=== PATIENT | female | born 1940 | race Caucasian/White ===

== ENCOUNTER 2017-02-05 11:22 | Inpatient (IN) ==
[2017-02-05] MEDS ORDERED: Ondansetron 4 MG/2 ML VIAL IVP ONE (11:27)
[2017-02-05] MEDS ORDERED: *HR* FentaNYL (PF) 100 MCG/2 ML VIAL IVP ONE (11:27)
--- NOTE | 2017-02-05 12:35 | Emergency Department Note ---
Disposition Clinical Impression: Closed intertrochanteric fracture of right femur Qualifiers: Encounter type: initial encounter Fracture alignment: displaced Qualified Code( s): S72.141A - Displaced intertrochanteric fracture of right femur, initial encounter for closed fracture Disposition: Admitted As Inpatient Condition: Fair Referrals: NONE,PCP [Non-Partnered Physician] - Forms: ED Satisfaction Letter Time of Disposition: 13:25 Fall HPI - General Chief Complaint: ED Fall Stated Complaint: right hip injury s/p fall Time Seen by Provider: 02/05/17 11:24 Source: patient, EMS Mode of arrival: EMS Limitations: no limitations Nursing Notes Reviewed: Yes Vital Signs Reviewed: Yes - History of Present Illness HPI Narrative: Patient is a 76-year-old female who presents to [facility] ED via EMS with chief complaint of right-sided hip pain. States she was working out at the fitness center when she slipped and landed on that right side. States she was unable to bear weight afterwards. They were able to get her up into a wheelchair. However she has severe pain in the right side. Denies any nausea, vomiting, fever or chills. No chest pain or shortness breath. Denies any lightheadedness or dizziness prior to falling. No abdominal pain, problems with urination or bowel movements. 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 Denies: weakness, chest pain, shortness of breath, abdominal pain, lightheaded, confusion - Related Data Home Medications Medication Instructions Recorded Confirmed Vitamins. 10/17/16 Previous Rx's Medication Instructions Recorded cephALEXin [Keflex] 500 mg PO QID #28 capsule 10/17/16 Allergies Allergy/AdvReac Type Severity Reaction Status Date / Time Sulfa (Sulfonamide Allergy Swelling Verified 02/05/17 11:25 Antibiotics) of Lip/Tongue/Throat All systems ED: reviewed and negative except as stated. 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 - Social History Smoking Status: Never smoker Alcohol use: Reports: none Drug use: Reports: none Physical Exam - General Limitations: no limitations General appearance: alert - Head Head exam: atraumatic, normocephalic, normal inspection - Eye Eye exam: Present: normal appearance, PERRL, EOMI - ENT ENT exam: normal exam, normal oropharynx, mucous membranes moist - Neck Neck exam: Present: normal inspection, full ROM, trachea midline - Chest Chest inspection: Present: normal inspection, symmetric chest wall rise - Respiratory Respiratory exam: Present: normal lung sounds bilaterally - Cardiovascular Cardiovascular exam: Present: regular rate, normal rhythm, normal heart sounds - Abdominal Exam Abdominal exam: Present: soft, Non-Tender. Absent: tenderness, distention, guarding, rebound, rigidity - Extremities Exam Extremities exam: Present: normal inspection. Absent: pedal edema - Expanded Lower Extremity Exam Hip/Pelvis exam: Present: tenderness. Absent: full ROM, swelling, abrasion - Back Exam Back exam: Present: normal inspection, full ROM. Absent: tenderness - Neurological Exam Neurological exam: Present: alert - Psychiatric Psychiatric exam: Present: normal affect, normal mood - Skin Skin exam: Present: warm, dry, intact, normal color Course Course Narrative: Patient seen and examined. Right-sided hip pain status post fall. Concern for possible fracture. Right hip x-ray and right knee x-rays ordered. We will give Tylenol for pain and Zofran for any nausea. - Reevaluation(s) Reevaluation #1: X-ray shows right intertrochanteric femur fracture. We will page orthopedics. Time: 12:37 Reevaluation #2: I spoke with hospitalist who has accepted patient for admission. I spoke with orthopedic surgeon Dr. Burt who will see the patient in consult. Time: 13:25 Vital Signs Temperature 97.8 F 02/05/17 11:25 Pulse Rate 69 02/05/17 11:25 Respiratory Rate 20 02/05/17 11:25 Blood Pressure 133/94 02/05/17 11:25 O2 Sat by Pulse Oximetry 100 02/05/17 11:25 Temperature 97.8 F 02/05/17 11:31 Pulse Rate 68 02/05/17 11:31 Respiratory Rate 20 02/05/17 11:31 Blood Pressure 160/97 02/05/17 11:31 O2 Sat by Pulse Oximetry 100 02/05/17 11:31 Oxygen Delivery Oxygen Delivery Room Air Fall - Medical Records Medical records reviewed: Yes I reviewed the patient's medical records. - Lab Data Lab results reviewed: Yes I reviewed the patient's lab results. - Radiology Data Radiology results reviewed: Yes I reviewed the patient's radiology results. Hip X-Ray 02/05/17 11:27 IMPRESSION: Intertrochanteric fracture of the right femur D/ / Jomar Osei MD / Jomar Osei MD Interpreting Provider: Jomar Osei MD Knee X-Ray 02/05/17 11:27 IMPRESSION: 1. No acute osseous abnormality. 2. Mild tricompartmental osteoarthritis. D/ / 02/05/2017 12:27:48 Julio Cesar Gibbs MD / [email or web address] Interpreting Provider: Julio Cesar Gibbs MD
[2017-02-05] MEDS ORDERED: Ondansetron 4 MG/2 ML VIAL IVP PRN (15:25)
[2017-02-05] MEDS ORDERED: *HR* Morphine 2 MG/ML SYRINGE IVP PRN (15:25)
[2017-02-05] MEDS ORDERED: Acetaminophen 325 MG TABLET PO PRN (15:25)
[2017-02-05] MEDS ORDERED: Naloxone 0.4 MG/ML INJ IVP PRN (15:25)
--- NOTE | 2017-02-05 15:26 | Orthopedic Consult Note ---
Date of Encounter: 02/05/17 Time of Encounter: 14:45 Assessment and Plan (1) Closed intertrochanteric fracture of right femur Current Visit: Yes Status: Acute Plan for right hip IM nailing tomorrow by Dr. Burt. I discussed the procedure as well as r/b/a with patient and family who expressed understanding. All questions answered and consent signed. Continue to ice the right hip. Non weight bearing until surgery. NPO after midnight tonight. Pain control per hospitalist. Qualifiers: Encounter type: initial encounter Fracture alignment: displaced Qualified Code(s): S72.141A - Displaced intertrochanteric fracture of right femur, initial encounter for closed fracture History of Present Illness Chief complaint: right hip pain HPI: Ms. Winter is a 76 year old female who presented to the ER today with right hip pain after a fall around 10:30am this morning. States she was at the gym playing beach volleyball with a beach ball when her foot slipped on the floor and she fell landing on the right side. She had instant pain in right hip that radiated down to foot. Pain was shooting, constant and worse with motion or weight bearing. No pain currently with medication but knee is sore. Denies any numbness or tingling. Denies hitting her head or LOC. Denies chest pain, SOB, fevers. Of note: Patient states no medical problems otherwise. I reviewed PCP (Dr. Mitchell) most recent visit note from 11/2016 which documents a heart cath in 2013 showed mild CAD. She had stress test in 07/2016 which showed some abnormalities so she was started on Imdur but PCP stopped this at last visit in 11/2016 and she has not had any cardiac issues since that time. Past Med Surg Social Fam HX - Past Medical History Medical history: no medical history Psychiatric history: no psych history - Social History Smoking Status: Never smoker Smokeless Tobacco Status: No Alcohol use: none Drug use: none Medications and Allergies Multivitamin [Multi-Day Vitamins] 1 tab PO DAILY 10/17/16 [History] Albuterol Sulfate [Proair Hfa] 2 puff IH Q4-6H PRN 02/05/17 [History] Alendronate Sodium [Fosamax] 70 mg PO QWEEK 02/05/17 [History] Isosorbide MONOnitrate (24 HR) [Imdur] 30 mg PO DAILY 02/05/17 [History] [place]-3/Dha/Epa/Fish Oil [Fish Oil 500 mg Softgel] 500 mg PO DAILY 02/05/17 [ History] Allergies Sulfa (Sulfonamide Antibiotics) Allergy (Verified 02/05/17 11:25) Swelling of Lip/Tongue/Throat All Systems Reviewed: A 10-system review of systems was performed and is negative for pertinent findings except as documented above in the HPI. - Constitutional Constitutional: as per HPI - Cardiovascular Cardiovascular: as per HPI - Respiratory Respiratory: as per HPI - Musculoskeletal Musculoskeletal: as per HPI Physical Exam - Constitutional Vitals: Temp Pulse Resp BP Pulse Ox 97.8 F 74 20 146/68 100 02/05/17 11:31 02/05/17 14:00 02/05/17 14:48 02/05/17 14:48 02/05/17 14:00 - Hip right Tenderness with palpation: anterior, posterior, lateral ROM: extension: abnormal (RLE is externally rotated. no open wounds or lesions to right hip. no calf tenderness to palpation. good dorsiflexion of foot. NV intact.) Results - Labs Labs: All other labs normal. - Diagnostic results Hip x-ray: report reviewed, image reviewed Knee x-ray: report reviewed, image reviewed Consult Discharge Plan - Plan Referrals: Heidi Cox MD [Primary Care Provider] - - Attending Attestation Case and plan of care discussed with supervising physician who was available for all aspects of care.
--- NOTE | 2017-02-05 15:36 | Internal Med History&Physical ---
<Lala Shaffer M - Last Filed: 02/05/17 18:13> Date of Encounter: 02/05/17 Time of Encounter: 15:37 Assessment and Plan (1) Closed intertrochanteric fracture of right femur Current visit: Yes Status: Acute Patient suffered mechanical fall today. Xray shows intertrochanteric fracture of right femur. Orthopedic surgery consulted, Dr. Burt plans surgery tomorrow afternoon. NPO after midnight. Will get pre-op ekg. Qualifiers: Encounter type: initial encounter Fracture alignment: displaced Qualified Code(s): S72.141A - Displaced intertrochanteric fracture of right femur, initial encounter for closed fracture (2) Pain of lower extremity due to injury Current visit: Yes Status: Acute Pain secondary to hip fracture. Jackson and morphine PRN for pain narcan prn for respiratory depression. Qualifiers: Laterality: right Qualified Code(s): M79.604 - Pain in right leg (3) CAD (coronary artery disease) Current visit: Yes Status: Acute Patient had LHC in 2013 which showed mild CAD with 20% stenosis in LAD, Circ and RCAs, no intervention necessary at that time. She follows with Dr. Blanchard in cardiology as an outpatient. Stress test in July showed changes to ekg with stress, but perfusion imaging was negative for ischemia or infarct. Her last visit with Dr. Blanchard was in November, and at that time her symptoms were determined to be from stress and improving after quitting a stressful job, Imdur was discontinued at that time. We will get a pre-op ekg. Qualifiers: Coronary Disease-Associated Artery/Lesion type: [place] artery [place] vs. transplanted heart: [place] heart Associated angina: without angina Qualified Code(s): I25.10 - Atherosclerotic heart disease of [place] coronary artery without angina pectoris (4) DVT prophylaxis Current visit: Yes Status: Acute sequential compression devices start pharmacologic prophylaxis after surgery tomorrow. Internal Medicine - H&P: HPI Chief complaint: fall Admitted From: Emergency Dept Plans for Post Hospital Care: Home History of present illness: Ms. Winter is a 76 year old female with no significant medical history presented to the emergency department today after suffering a fall. Patient [place] she [place] and fell on her right side. She had immediate severe sharp pain radiating down her leg to her foot. She was unable to bear weight, pain was worse with any manipulation or movement. Patient denies any lightheadedness, dizziness, chest pain, palpitations, shortness of breath. Evaluation in the emergency department included an x-ray of the hip which showed an intertrochanteric fracture of the right femur. The x-ray was negative for any acute osseous abnormality. Orthopedic surgery was consulted and planned to take patient to the operating room tomorrow afternoon for repair. Reviewed patient's outpatient notes, she was following with Dr. Blanchard for chest pain and abnormal stress. LHC in 2013 showed mild CAD. Last visit with Dr. Blanchard in November he discontinued imdur as patient's symptoms were improved and felt to be secondary to stress. Will get EKG. On exam, Patient alert and oriented, in no acute distress. Lungs are clear bilaterally to auscultation, heart has regular rate and rhythm. Right hip with swelling and tenderness to palpation. Peripheral pulses intact. Past Med Surg Social Fam HX - Past Medical History Medical history: no medical history Psychiatric history: no psych history - Past Surgical History Surgical History: other (tubal ligation) - Social History Smoking Status: Never smoker Smokeless Tobacco Status: No Alcohol use: none Drug use: none - Family History Mother Living Status: Age at : 89 Father Living Status: Age at : 92 Hx Family Cardiac Disorders: Yes Internal Medicine - H&P: Meds Multivitamin [Multi-Day Vitamins] 1 tab PO DAILY 10/17/16 [History] Albuterol Sulfate [Proair Hfa] 2 puff IH Q4-6H PRN 02/05/17 [History] Alendronate Sodium [Fosamax] 70 mg PO QWEEK 02/05/17 [History] Isosorbide MONOnitrate (24 HR) [Imdur] 30 mg PO DAILY 02/05/17 [History] [place]-3/Dha/Epa/Fish Oil [Fish Oil 500 mg Softgel] 500 mg PO DAILY 02/05/17 [ History] Allergies Sulfa (Sulfonamide Antibiotics) Allergy (Verified 02/05/17 11:25) Swelling of Lip/Tongue/Throat All Systems PM: A 10-system review of systems was performed and is negative for pertinent findings except as documented above in the HPI. - Constitutional Constitutional: no chills, no fever(s), no night sweats - EENT Eyes: no change in vision, no discharge, no pain, no photophobia Ears: no ear discharge, no ear pain, no tinnitus Nose, mouth and throat: no dysphagia, no nasal discharge, no neck pain, no sore throat - Cardiovascular Cardiovascular ROS IM: no chest pain, no diaphoresis, no dyspnea, no lightheadedness, no palpitations, no syncope - Respiratory Respiratory: no cough, no dyspnea, no wheezing, no excessive phlegm production - Gastrointestinal Gastrointestinal: no abdominal pain, no diarrhea, no hematemesis, no hematochezia, no melena, no nausea, no vomiting - Genitourinary Genitourinary: no change in urinary stream, no dysuria, no flank pain, no hematuria - Musculoskeletal Musculoskeletal ROS IM: no numbness, no tingling Additional comments: right hip and leg pain - Integumentary Integumentary IM: no rash, no unusual bruising - Neurological Neurological ROS: no confusion, no convulsions, no focal weakness, no numbness, no tingling, no tremor(s) - Hematologic/Lymphatic Hematologic/Lymphatic: no easy bruising - Constitutional Vitals: Temp Pulse Resp BP Pulse Ox 97.8 F 74 20 146/68 100 02/05/17 11:31 02/05/17 14:00 02/05/17 14:48 02/05/17 14:48 02/05/17 14:00 General appearance: Present: A&O X 3, pleasant, no acute distress - Head Head exam: Present: atraumatic, normocephalic - Eye Eye exam: Present: PERRL, conjuntiva pink, sclera anicteric Pupils: Present: PERRL - Neck Neck exam general surgery: Present: supple, trachea midline. Absent: lymphadenopathy - Respiratory Respiratory exam: Present: CTAB. Absent: accessory muscle use, rales, rhonchi, wheezes - Cardiovascular Cardiovascular exam: Present: RRR, +S1, +S2. Absent: diastolic murmur, gallop, rubs, systolic murmur - GI/Abdominal GI/Abdominal exam: Present: normal bowel sounds, soft, no peritoneal signs. Absent: distended, tenderness - Extremities Exam Extremities exam: Present: warm, radial pulses palpable and symetrical. Absent : calf tenderness, cyanotic, pedal edema - Expanded Lower Extremities Exam Hip exam: Present: deformity, tenderness - Neurological Exam Neurological exam: Present: CN II-XII intact, oriented X3, no focal deficits. Absent: pronater drift, facial droop, speech deficit - Skin Skin exam: Present: dry, intact Internal Med - H&P Results - Diagnostic Studies Other Images Additional comments: Hip X-Ray 02/05/17 11:27 IMPRESSION: Intertrochanteric fracture of the right femur D/ / Jomar Osei MD / Jomar Osei MD Interpreting Provider: Jomar Osei MD Knee X-Ray 02/05/17 11:27 IMPRESSION: 1. No acute osseous abnormality. 2. Mild tricompartmental osteoarthritis. D/ / 02/05/2017 12:27:48 Julio Cesar Gibbs MD / [email or web address] Interpreting Provider: Julio Cesar Gibbs MD <[email or web address] - Last Filed: 02/05/17 18:34> Date of Encounter: 02/05/17 Internal Medicine - H&P: HPI History of present illness: Ms. Winter is a 76 year old female All Systems PM: A 10-system review of systems was performed and is negative for pertinent findings except as documented above in the HPI. - Constitutional Vitals: Temp Pulse Resp BP Pulse Ox 98.0 F 68 18 119/45 99 02/05/17 15:43 02/05/17 15:43 02/05/17 15:43 02/05/17 15:43 02/05/17 15:43 - Attending Attestation I have personally performed a face to face evaluation on this patient and I discussed the assessment and plan with the nurse practitioner. I have reviewed and agree with the documented care plan. History and Exam by me shows: Ms. Winter is a 76 year old female with no significant medical history presented to the emergency department today after suffering a fall. Patient reports [place] she [place] and fell on her right side. She had immediate severe sharp pain radiating down her leg to her foot. She was unable to bear weight, pain was worse with any manipulation or movement. Patient denies any lightheadedness, dizziness, chest pain, palpitations, shortness of breath. Evaluation in the emergency department included an x-ray of the hip which showed an intertrochanteric fracture of the right femur. Gen: A, A, O x 3 In mild distress with Rt hip pain Hip: mild swelling and tenderness over Rt hip.. limited ROM at Rt hip a/p 1. Acute Rt inter trochanteric fx 2. h/o CAD Pt was very active prior to this Seems to be she moderate risk only for major surgeries like Hi repair will f/u on her EKG.. does not need any further work up for pre op clearance cont Lovenox for DVT prophylaxis
--- NOTE | 2017-02-05 19:52 | Anesthesia Evaluation PreOp ---
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 Other Medical History: Denies Any Significant HX Anesthesia History: No Prior Anesthetic Complications, Past Anesthesia Alcohol Use: rarely Drug use: none Medications and Allergies Multivitamin [Multi-Day Vitamins] 1 tab PO DAILY 10/17/16 [History] Albuterol Sulfate [Proair Hfa] 2 puff IH Q4-6H PRN 02/05/17 [History] Alendronate Sodium [Fosamax] 70 mg PO QWEEK 02/05/17 [History] Isosorbide MONOnitrate (24 HR) [Imdur] 30 mg PO DAILY 02/05/17 [History] [place]-3/Dha/Epa/Fish Oil [Fish Oil 500 mg Softgel] 500 mg PO DAILY 02/05/17 [ History] Allergies Sulfa (Sulfonamide Antibiotics) Allergy (Verified 02/05/17 11:25) Swelling of Lip/Tongue/Throat - Meds/Allergy Pre-op Review Medications Reviewed: Yes Allergies Reviewed: Yes Beta Blockers on Current Med List: No Anesthesia Results - Labs 02/06/17 05:07 Laboratory Tests 07/17/16 07/17/16 07/17/16 16:41 16:41 16:41 WBC 6.7 Hgb 12.8 Hct 39.6 Plt Count 323 PT 11.1 INR 1.0 APTT 32.3 Sodium 140 Potassium 3.5 BUN 11 Creatinine 0.82 - Imaging EKG: report reviewed (07/17/2016 SINUS RHYTHM WITH FIRST DEGREE AV BLOCK) Additional studies: 07/31/2016 Echo Impressions: LVEF 65%. Normal LV chamber size, wall thickness and function. Mild left ventricular diastolic dysfunction. Normal right ventricular structure and function. No evidence of pulmonary hypertension. No significant valvular dysfunction. 07/31/2016 Stress Impression: Exercise ECG is positive for ischemia in the inferior limb leads and lateral precordial leads. Gated EF = 79%. Perfusion imaging was negative for ischemia or infarct. 09/17/2013 [facility] Impressions: Minimal atherosclerotic coronary artery disease. The left ventricle is normal and has normal contractility EF 65% Recommendations: Optimal medical therapy of patient's disease. Aggressive risk factor modification. Aspirin 81mg daily. 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
[2017-02-05] MEDS: *HR* HYDROcodone/Acet 5/325 mg TABLET PO PRN (20:25)
[2017-02-06] MEDS: 0.9 % Sodium Chloride 1,000 ML IVC SCH ×2 (00:11→10:25)
[2017-02-06 06:00] LABS: Basophils % 0.2 %; Eosinophils % 0.2 %; Immature Granulocytes % 0.3 % (0-4); Lymphocytes % 13.1 %; Mean Corpuscular Hemoglobin 30.6 pg (28.0-33.3); Monocytes % 12.1 %; Red Cell Distribution Width 12.7 % (11.5-14.5); Segmented Neutrophils % 74.1 %
[2017-02-06 08:00] LABS: BUN/Creatinine Ratio 15 (6-26); Blood Urea Nitrogen 11 mg/dL (7-20); Carbon Dioxide 21 mEq/L (19-29); Glucose 102 mg/dL (70-99); Osmolality,Calculated 288 (280-300); Sodium 139 mEq/L (136-145); eGFR For African Americans > 60 (> 60); eGFR For Non-African Americans > 60 (> 60)
[2017-02-06 08:01] LABS: Calcium 9.1 mg/dL (8.6-10.8); Chloride 111 mEq/L (98-109)
[2017-02-06 09:41] LABS: % Iron Saturation 12 % (15-50); Iron 37 mcg/dL (50-170); Transferrin 224 mg/dL (180-382)
[2017-02-06] MEDS: *HR* HYDROcodone/Acet 5/325 mg TABLET PO PRN ×2 (10:00→15:12)
[2017-02-06 10:01] LABS: Ferritin 180 ng/ml (5-204)
[2017-02-06 10:13] LABS: Hematocrit 34.5 % (35.3-44.9); Hemoglobin 11.4 g/dL (11.5-15.4)
[2017-02-06 10:21] LABS: Lymphocytes # 1.2 K/mcL (0.6-4.6); Monocytes # 1.1 K/mcL (0.0-1.3); Neutrophils # 6.6 K/mcL (1.6-8.9); Red Blood Count 3.75 M/mcL (3.82-4.97)
[2017-02-06 10:22] LABS: Hematocrit 34.7 % (35.3-44.9); Hemoglobin 11.5 g/dL (11.5-15.4); Mean Corpuscular Volume 92.5 fL (83.0-100.0)
[2017-02-06 10:23] LABS: Mean Corpuscular HGB Conc 33.1 g/dL (31.6-35.5); Platelet Count 230 K/mcL (140-400)
[2017-02-06 10:24] LABS: Mean Platelet Volume 10.7 fL (9.4-12.4)
--- NOTE | 2017-02-06 14:00 | Internal Med Progress Note ---
<Gina Nguyen - Last Filed: 02/06/17 18:45> Date of Encounter: 02/06/17 Time of Encounter: 13:57 - Assessment and plan (1) Closed intertrochanteric fracture of right femur Current Visit: Yes Status: Acute Assessment and plan: Patient suffered mechanical fall 02/05 during [employer] game. XR shows intertrochanteric fracture of right femur Ortho (Dr. Burt) consulted, plan for surgery this afternoon with 3 day post-op stay. Plan: -NPO until surgery today Qualifiers: Encounter type: initial encounter Fracture alignment: displaced Qualified Code(s): S72.141A - Displaced intertrochanteric fracture of right femur, initial encounter for closed fracture (2) Pain of lower extremity due to injury Current Visit: Yes Status: Acute Assessment and plan: Pain secondary to hip fracture Plan: -Pain control with morphine prn and norco Qualifiers: Laterality: right Qualified Code(s): M79.604 - Pain in right leg (3) CAD (coronary artery disease) Current Visit: Yes Status: Acute Assessment and plan: Patient had LHC in 2013 which showed mild CAD with 20% stenosis in LAD, Circ and RCAs, no intervention necessary at that time. She follows with Dr. Blanchard in cardiology as an outpatient. Stress test in July showed changes to ekg with stress, but perfusion imaging was negative for ischemia or infarct. Her last visit with Dr. Blanchard was in November, and at that time her symptoms were determined to be from stress and improving after quitting a stressful job, Imdur was discontinued at that time. EK07/17/2016: SINUS RHYTHM WITH FIRST DEGREE AV BLOCK 07/31/2016 Echo: LVEF 65%. Normal LV chamber size, wall thickness and function. Mild left ventricular diastolic dysfunction. Normal right ventricular structure and function. No evidence of pulmonary hypertension. No significant valvular dysfunction. 07/31/2016 Stress: Exercise ECG is positive for ischemia in the inferior limb leads and lateral precordial leads. Gated EF = 79%. Perfusion imaging was negative for ischemia or infarct. Qualifiers: Coronary Disease-Associated Artery/Lesion type: [place] artery [place] vs. transplanted heart: [place] heart Associated angina: without angina Qualified Code(s): I25.10 - Atherosclerotic heart disease of [place] coronary artery without angina pectoris (4) DVT prophylaxis Current Visit: Yes Status: Acute Assessment and plan: sequential compression devices Will start pharmacologic prophylaxis after surgery - Subjective Interval history: Patient seen and examined. She remains NPO and states she is scheduled for surgery around 1400 for closed intertrochanteric fracture of the right femur following a mechanical fall with Dr. Burt. She denies any complaints of f/c, sob, cp, n/v. she does experience pain in the right leg when she turns from side to side. - Constitutional Vitals: Temp Pulse Resp BP Pulse Ox 97.6 F 66 18 148/69 95 02/06/17 12:02 02/06/17 12:02 02/06/17 12:02 02/06/17 12:02 02/06/17 12:02 General appearance: Present: cooperative, A&O X 3, pleasant, no acute distress, answers questions appropriately - Head Head exam: Present: atraumatic, normocephalic - Eye Eye exam: Present: PERRL, conjuntiva pink, sclera anicteric Pupils: Present: PERRL - Respiratory Respiratory exam: Present: CTAB. Absent: accessory muscle use, rales, rhonchi, wheezes - Cardiovascular Cardiovascular exam: Present: RRR, +S1, +S2. Absent: diastolic murmur, gallop, rubs, systolic murmur - GI/Abdominal GI/Abdominal exam: Present: normal bowel sounds, soft, no peritoneal signs. Absent: distended, tenderness - Extremities Exam Extremities exam: Present: warm, radial pulses palpable and symetrical. Absent : calf tenderness, cyanotic, pedal edema Additional comments: tenderness with palpation of right leg. Neurovascularly intact on exam, no erythema noted - Neurological Exam Neurological exam: Present: alert, CN II-XII intact, oriented X3, no focal deficits. Absent: pronater drift, facial droop, speech deficit - Psychiatric Psychiatric exam: Present: normal affect, normal mood - Skin Skin exam: Present: dry, intact Internal Medicine: Result - Labs CBC & Chem 7: 02/06/17 10:04 02/06/17 06:46 Labs: Short CBC 02/06/17 02/06/17 Range/Units 06:46 10:04 WBC 8.9 (4.3-11.1) K/mcL Hgb 11.5 11.4 L (11.5-15.4) g/dL Hct 34.7 L 34.5 L (35.3-44.9) % Plt Count 230 (140-400) K/mcL Neutrophils # 6.6 (1.6-8.9) K/mcL [facility] 02/06/17 06:46 Sodium 139 Potassium 4.0 Chloride 111 H Carbon Dioxide 21 BUN 11 Creatinine 0.74 Glucose 102 H Calcium 9.1 Consult Discharge Plan - Plan Referrals: Heidi Cox MD [Primary Care Provider] - <Mann Pitts - Last Filed: 02/06/17 23:25> Date of Encounter: 02/06/17 - Constitutional Vitals: Temp Pulse Resp BP Pulse Ox 98.1 F 77 14 161/78 100 02/06/17 23:12 02/06/17 23:12 02/06/17 23:12 02/06/17 23:12 02/06/17 23:12 Internal Medicine: Result - Labs CBC & Chem 7: 02/06/17 10:04 02/06/17 06:46 Labs: Short CBC 02/06/17 02/06/17 Range/Units 06:46 10:04 WBC 8.9 (4.3-11.1) K/mcL Hgb 11.5 11.4 L (11.5-15.4) g/dL Hct 34.7 L 34.5 L (35.3-44.9) % Plt Count 230 (140-400) K/mcL Neutrophils # 6.6 (1.6-8.9) K/mcL [facility] 02/06/17 06:46 Sodium 139 Potassium 4.0 Chloride 111 H Carbon Dioxide 21 BUN 11 Creatinine 0.74 Glucose 102 H Calcium 9.1 - Impressions Impressions Fluoroscopy 02/06/17 20:55 IMPRESSION: Successful internal reduction of intertrochanteric fracture with hardware. D/ / Eloy Rodgers MD / Eloy Rodgers MD Interpreting Provider: Eloy Rodgers MD - Attending Attestation She is bright and cheerful.. repeat HGB is good. She should be good for surgery later today, then will work on rehab placement
--- NOTE | 2017-02-06 15:32 | Electrocardiograph Report ---
[address] [place] [address] Test Date: 2017-02-06 Pat Name: Rosalina Winter Department: [id number] Room: [facility] Gender: F Workgroup Leader: [id number] : 1940 Requested By: Lala Shaffer Order Number: [id number] Reading MD: Heidi Arredondo Measurements Intervals [place] Rate: 69 P: 63 SC: 222 QRS: 33 QRSD: 93 T: 57 QT: 393 QTc: 412 Interpretive Statements SINUS RHYTHM WITH FIRST DEGREE AV BLOCK Electronically Signed On 02-06-2017 15:30:38 EDT by Heidi Arredondo
[2017-02-06] MEDS ORDERED: *HR* Propofol 200 MG/20 ML VIAL IVP ONE (16:42)
[2017-02-06] MEDS ORDERED: Ondansetron 4 MG/2 ML VIAL ONE (16:42)
[2017-02-06] MEDS ORDERED: Dexamethasone 4 MG/ML VIAL ONE (16:42)
[2017-02-06] MEDS ORDERED: *HR* FentaNYL (PF) 100 MCG/2 ML VIAL ONE (16:42)
[2017-02-06] MEDS ORDERED: Lidocaine -MPF 2% 2 ML VIAL ONE (16:42)
[2017-02-06] MEDS ORDERED: *HR* Phenylephrine 10 MG/ML VIAL ONE (16:49)
[2017-02-06] MEDS ORDERED: *HR* HYDROmorphone (PF) 1 MG/ML SYRINGE IVP PRN (19:55)
[2017-02-06] MEDS ORDERED: *HR* Promethazine 25 MG/ML VIAL IVP PRN (19:55)
[2017-02-06] MEDS ORDERED: *HR* Morphine 10 MG/ML VIAL ONE (21:47)
--- NOTE | 2017-02-06 22:02 | Operative Note ---
Date of procedure: 02/06/17 Pre-op diagnosis: Right hip intertrochanteric fracture Post-op diagnosis: same Procedure: Right hip intramedullary nailing Implants: Synthes Trochanteric Femoral Nail Anesthesia: SUSY Surgeon: Jaden Burt Estimated blood loss (cc): 50 Specimen: 0 Condition: stable Disposition: PACU Procedure in Detail: The patient received IV antibiotics in the holding area. She was brought to the operating room, a sign in was performed. The patient underwent general anesthesia on the hospital bed. She was then transferred to the fracture table in supine position. The patient was positioned with the support groin post, the affected right lower extremity in the traction arrieta and the contralateral lower extremity in a well-padded limb arrieta with a hip flexed and abducted out of the way. Fluoroscopy was then brought in, the fractures visualized, and the fracture reduced. We checked on AP and true lateral view of the hip. Once satisfactory the right hip, from the pelvis down to the knee, was prepped and draped in usual sterile fashion. A timeout was performed. The level of the greater trochanter was palpated, a 4-5 cm oblique incision was made just proximally, , followed by Bovie dissection. The hip abductor was sharply split in line with its fibers with a curved Thao scissors. The tip of the greater trochanter was palpable. A curved awl was then positioned on the tip. Its position was checked on fluoroscopy, slightly advanced, and we checked the lateral view. Once appropriately positioned, the awl was then used to try open the proximal femur. The patient's bone was too dense. A guidewire was driven through the tip of the greater trochanter followed by the reamer down to level of the lesser trochanter. A short Trochanteric Femoral Nail Advanced with 130 degree neck angle, 11 mm diameter, was assembled, and appropriately inserted into the proximal femur. The appropriate level was checked under fluoroscopy. The triple trochars of 130 degree neck angle was then positioned against the skin, checking fluoroscopy for positioning. Once satisfactory a 2.5 cm incision was made, the fascia was bluntly split along with the muscle fibers of the vastus lateralis. The triple trocar was advanced up against the lateral cortex. The guidepin was then driven up into the femoral head, checking AP and lateral views. The wire was adjusted as needed. A 90 mm long helical blade was chosen. Overdrilled the guidewire, and the helical blade was tapped in place over the guidewire in standard technique. Once close to the edge of the femoral head, the setscrew was then screwed down. The triple trochars for the distal static locking screw were placed in the jig, a 1 cm longitudinal incision was made. The trochars were advanced to the cortex , and drilled across. The depth was measured and a 34 mm long by 5 mm bicortical screw was placed. All trochars and jig were removed. Final fluoroscopy shots were taken and saved showing good AP and lateral views of the hip and also distally at the tip of the nail. The wounds were irrigated with normal saline. Fascia over the abductors was closed with 0 Vicryl [id number] stitches, including the deep subcutaneous fat layer. Subcutaneous tissues were closed with 2-0 Vicryl, and the skin incisions were closed with sadie. Sterile dressings were applied. The patient was transferred to hospital bed where she was extubated and taken to recovery room in stable condition.
--- NOTE | 2017-02-06 22:39 | Anesthesia Evaluation Post Op ---
Date of Encounter: 02/06/17 Time of Encounter: 22:39 - Vital Signs Vital Signs: Vital Signs/O2 Sat, Most Current Temp Pulse Resp BP Pulse Ox 98 F 74 12 138/61 100 02/06/17 22:03 02/06/17 22:23 02/06/17 22:23 02/06/17 22:23 02/06/17 22:23 - Lungs Lungs: Clear Ascult./Percussion - Airway Airway: Non-obstructed - Cardiovascular Regular Rate - Mental Status Mental Status: Alert & Oriented, Answers Appropriately - Pain Pain Scale: 2 Pain Scale used: Numeric (1 - 10) - Nausea Vomiting Nausea Vomiting: Not Present - Hydration Hydration: NPO, Carvajal catheter - Discharge PostOp Status: Transfer Patient to floor
[2017-02-06] MEDS ORDERED: *HR* Morphine 2 MG/ML SYRINGE IVP PRN (23:03)
[2017-02-06] MEDS ORDERED: Sennosides 8.6 MG TABLET PO PRN (23:03)
[2017-02-06] MEDS ORDERED: *HR* HYDROcodone/Acet 5/325 mg TABLET PO PRN (23:03)
[2017-02-06] MEDS ORDERED: D5% in 0.45% NACL 1,000 ML IVC SCH (23:03)
[2017-02-06] MEDS ORDERED: Ondansetron 4 MG/2 ML VIAL IVP PRN (23:03)
[2017-02-06] MEDS ORDERED: Naloxone 0.4 MG/ML INJ IVP PRN ×2 (23:03)
[2017-02-07] MEDS: ceFAZolin 2,000 MG in D5% in Water 100 ML IVPB SCH ×2 (00:11→07:25)
[2017-02-07 05:08] LABS: Hematocrit 33.2 % (35.3-44.9); Hemoglobin 10.9 g/dL (11.5-15.4); Immature Granulocytes % 0.4 % (0-4); Lymphocytes # 0.7 K/mcL (0.6-4.6); Mean Corpuscular HGB Conc 32.8 g/dL (31.6-35.5); Mean Corpuscular Hemoglobin 30.3 pg (28.0-33.3); Mean Corpuscular Volume 92.2 fL (83.0-100.0); Mean Platelet Volume 10.6 fL (9.4-12.4); Monocytes # 0.6 K/mcL (0.0-1.3); Monocytes % 7.5 %; Neutrophils # 6.8 K/mcL (1.6-8.9); Platelet Count 197 K/mcL (140-400); Red Cell Distribution Width 12.5 % (11.5-14.5); Segmented Neutrophils % 83.1 %
[2017-02-07 05:22] LABS: BUN/Creatinine Ratio 12 (6-26); Blood Urea Nitrogen 9 mg/dL (7-20); Calcium 8.5 mg/dL (8.6-10.8); Carbon Dioxide 23 mEq/L (19-29); Chloride 108 mEq/L (98-109); Glucose 156 mg/dL (70-99); Osmolality,Calculated 290 (280-300); Potassium 3.8 mEq/L (3.5-4.5); Sodium 139 mEq/L (136-145); eGFR For African Americans > 60 (> 60); eGFR For Non-African Americans > 60 (> 60)
[2017-02-07] MEDS: Cholecalciferol (D-3) 1,000 UNIT TABLET PO SCH (07:25)
--- NOTE | 2017-02-07 08:12 | Internal Med Progress Note ---
<Gina Nguyen - Last Filed: 02/07/17 17:19> Date of Encounter: 02/07/17 Time of Encounter: 08:12 - Assessment and plan (1) Closed intertrochanteric fracture of right femur Current Visit: Yes Status: Acute Assessment and plan: Patient suffered mechanical fall 02/05 during [email or web address] game with intertrochanteric fracture of right femur. POD#1 Right hip intermedulary nailing with Dr. Burt Ortho (Dr. Burt) consulted, appreciate recs Doing well today, up in chair and tolerating breakfast, passing gas Plan: -PT/OT -Pain control Qualifiers: Encounter type: initial encounter Fracture alignment: displaced Qualified Code(s): S72.141A - Displaced intertrochanteric fracture of right femur, initial encounter for closed fracture (2) CAD (coronary artery disease) Current Visit: Yes Status: Acute Assessment and plan: Patient had LHC in 2013 which showed mild CAD with 20% stenosis in LAD, Circ and RCAs, no intervention necessary at that time. She follows with Dr. Blanchard in cardiology as an outpatient. Stress test in July showed changes to ekg with stress, but perfusion imaging was negative for ischemia or infarct. Her last visit with Dr. Mitchell was in November, and at that time her symptoms were determined to be from stress and improving after quitting a stressful job, Imdur was discontinued at that time. EK07/17/2016: SINUS RHYTHM WITH FIRST DEGREE AV BLOCK 07/31/2016 Echo: LVEF 65%. Normal LV chamber size, wall thickness and function. Mild left ventricular diastolic dysfunction. Normal right ventricular structure and function. No evidence of pulmonary hypertension. No significant valvular dysfunction. 07/31/2016 Stress: Exercise ECG is positive for ischemia in the inferior limb leads and lateral precordial leads. Gated EF = 79%. Perfusion imaging was negative for ischemia or infarct. Qualifiers: Coronary Disease-Associated Artery/Lesion type: [place] artery [place] vs. transplanted heart: [place] heart Associated angina: without angina Qualified Code(s): I25.10 - Atherosclerotic heart disease of [place] coronary artery without angina pectoris (3) DVT prophylaxis Current Visit: Yes Status: Acute Assessment and plan: Lovenox SQ - Subjective Interval history: Patient seen and examined. She is POD#1 Right hip intermedulary nailing with Dr. Burt. She is sitting up in the chair this morning eating breakfast. She states that her pain is much better compared to yesterday. She had some SOB with ambulation, but none at rest. Denies f/c, cp, abdominal pain, tolerating breakfast well. - Constitutional Vitals: Temp Pulse Resp BP Pulse Ox 98.6 F 73 18 143/79 95 02/07/17 06:40 02/07/17 06:40 02/07/17 06:40 02/07/17 06:40 02/07/17 06:40 General appearance: Present: cooperative, A&O X 3, pleasant, no acute distress, answers questions appropriately - Head Head exam: Present: atraumatic, normocephalic - Neck Neck exam general surgery: Present: supple, trachea midline. Absent: lymphadenopathy - Respiratory Respiratory exam: Present: CTAB. Absent: accessory muscle use, rales, rhonchi, wheezes - Cardiovascular Cardiovascular exam: Present: RRR, +S1, +S2. Absent: diastolic murmur, gallop, rubs, systolic murmur - GI/Abdominal GI/Abdominal exam: Present: normal bowel sounds, soft, no peritoneal signs. Absent: distended, tenderness - Extremities Exam Extremities exam: Present: normal capillary refill, warm, radial pulses palpable and symetrical. Absent: calf tenderness, cyanotic, pedal edema Additional comments: Dressing in place right lateral hip, limb is neurovascularly intact without evidence of erythema, eccymosis or swelling. - Neurological Exam Neurological exam: Present: CN II-XII intact, oriented X3, no focal deficits. Absent: pronater drift, facial droop, speech deficit - Psychiatric Psychiatric exam: Present: normal affect, normal mood - Skin Skin exam: Present: dry, intact, warm Internal Medicine: Result - Labs CBC & Chem 7: 02/07/17 04:14 02/07/17 04:14 Labs: Short CBC 02/06/17 02/06/17 02/07/17 Range/Units 06:46 10:04 04:14 WBC 8.9 8.1 (4.3-11.1) K/mcL Hgb 11.5 11.4 L 10.9 L (11.5-15.4) g/dL Hct 34.7 L 34.5 L 33.2 L (35.3-44.9) % Plt Count 230 197 (140-400) K/mcL Neutrophils # 6.6 6.8 (1.6-8.9) K/mcL BMP 02/07/17 04:14 Sodium 139 Potassium 3.8 Chloride 108 Carbon Dioxide 23 BUN 9 Creatinine 0.75 Glucose 156 H Calcium 8.5 L - Impressions Impressions Fluoroscopy 02/06/17 20:55 IMPRESSION: Successful internal reduction of intertrochanteric fracture with hardware. D/ / Eloy Rodgers MD / Eloy Rodgers MD Interpreting Provider: Eloy Rodgers MD - VTE Documentation of Mechanical Device: Intermittent pneumatic compression device Consult Discharge Plan - Plan Referrals: Heidi Cox MD [Primary Care Provider] - <Mann Pitts - Last Filed: 02/07/17 18:05> Date of Encounter: 02/07/17 - Constitutional Vitals: Temp Pulse Resp BP Pulse Ox 98.8 F 80 16 147/54 98 02/07/17 15:15 02/07/17 15:15 02/07/17 15:15 02/07/17 15:15 02/07/17 15:15 Internal Medicine: Result - Labs CBC & Chem 7: 02/07/17 04:14 02/07/17 04:14 Labs: Short CBC 02/07/17 Range/Units 04:14 WBC 8.1 (4.3-11.1) K/mcL Hgb 10.9 L (11.5-15.4) g/dL Hct 33.2 L (35.3-44.9) % Plt Count 197 (140-400) K/mcL Neutrophils # 6.8 (1.6-8.9) K/mcL BMP 02/07/17 04:14 Sodium 139 Potassium 3.8 Chloride 108 Carbon Dioxide 23 BUN 9 Creatinine 0.75 Glucose 156 H Calcium 8.5 L - Impressions Impressions Fluoroscopy 02/06/17 20:55 IMPRESSION: Successful internal reduction of intertrochanteric fracture with hardware. D/ / Eloy Rodgers MD / Eloy Rodgers MD Interpreting Provider: Eloy Rodgers MD - Attending Attestation I examined this patient and my medical decision-making was reviewed with the Resident Physician. I agree with the documented findings, disposition and treatment plan as described except to the extent set forth below. Hope to DC tomorrow to rehab.. BP is labile with pain. She does not take any BP meds per se.
--- NOTE | 2017-02-07 14:53 | Orthopedics Progress Note ---
Date of Encounter: 02/07/17 Time of Encounter: 12:45 - Assessment and Plan (1) Closed intertrochanteric fracture of right femur Current Visit: Yes Status: Acute POD#1 Right hip IM nailing Continue to apply ice to right hip. Dressings to be changed tomorrow. Continue in therapy, WBAT Pain control per hospitalist. Plan for DC to ECF tomorrow. Will follow up with Irene Zepeda PA-C in [place] office at [facility]. Qualifiers: Encounter type: initial encounter Fracture alignment: displaced Qualified Code(s): S72.141A - Displaced intertrochanteric fracture of right femur, initial encounter for closed fracture Subjective Principal diagnosis: POD#1 s/p right hip IM nailing Interval history: Patient doing well today with no complaints. No events overnight. Pain very tolerable. She has been ambulating well during therapy session this morning. Denies calf pain. Objective Vital signs: Vital Signs Temp Pulse Resp BP Pulse Ox 02/07/17 10:50 97.8 F 73 16 146/56 99 02/07/17 06:40 98.6 F 73 18 143/79 95 02/07/17 04:26 98.7 F 70 14 152/66 96 02/07/17 01:11 98.5 F 75 16 155/68 97 02/07/17 00:07 98.3 F 78 16 162/69 98 02/06/17 23:12 98.1 F 77 14 161/78 100 02/06/17 22:45 98.0 F 80 16 164/74 98 02/06/17 22:33 98.3 F 80 16 143/54 99 02/06/17 22:23 74 12 138/61 100 02/06/17 22:13 75 12 135/66 100 02/06/17 22:03 98 F 82 10 123/61 100 02/06/17 15:45 98.2 F 70 18 139/61 98 Intake and Output 02/06/17 02/07/17 02/07/17 23:59 07:59 15:59 Intake Total 100 / 100 0 / 0 Output Total 650 / 650 1175 / 1175 Balance -650 / -650 -1075 / -1075 0 / 0 Intake: IV Fluids 100 / 100 Ancef 2,000 MG In 100 / 100 Dextrose 5% 100 ML @ 200 mls/hr IVPB Q8HR JIM Rx#: [id number] Oral 0 / 0 Output: Estimated Blood Loss 50 / 50 Urine Amount (Catheter) 600 / 600 Catheter 1175 / 1175 Other: Meal Lunch Percent of Meal Consumed 75% # Voids 1 Weight 64.4 kg Patient Weight 02/07/17 23:59 Weight 64.4 kg Incision: clean and dry (dressings c/d/i with no surrounding erythema, no calf pain to palpation,NV intact) - Labs CBC & BMP: 02/07/17 04:14 02/07/17 04:14 Labs: Abnormal lab results RBC 3.60 M/mcL (3.82-4.97) L 02/07/17 04:14 Hgb 10.9 g/dL (11.5-15.4) L 02/07/17 04:14 Hct 33.2 % (35.3-44.9) L 02/07/17 04:14 Glucose 156 mg/dL (70-99) H 02/07/17 04:14 Calcium 8.5 mg/dL (8.6-10.8) L 02/07/17 04:14 Iron 37 mcg/dL (50-170) L 02/06/17 09:05 % Saturation 12 % (15-50) L 02/06/17 09:05 - VTE Documentation of Mechanical Device: Intermittent pneumatic compression device Consult Discharge Plan - Plan Referrals: Heidi Cox MD [Primary Care Provider] -
[2017-02-08] MEDS: *HR* Enoxaparin 30 MG/0.3 ML SYRINGE SQ SCH ×2 (01:32→08:14)
[2017-02-08 05:39] LABS: Hematocrit 29.5 % (35.3-44.9); Hemoglobin 9.8 g/dL (11.5-15.4); Mean Corpuscular HGB Conc 33.2 g/dL (31.6-35.5); Mean Corpuscular Hemoglobin 30.2 pg (28.0-33.3); Mean Platelet Volume 10.5 fL (9.4-12.4); Platelet Count 182 K/mcL (140-400); Red Blood Count 3.24 M/mcL (3.82-4.97); Red Cell Distribution Width 12.5 % (11.5-14.5)
[2017-02-08 05:57] LABS: BUN/Creatinine Ratio 17 (6-26); Blood Urea Nitrogen 12 mg/dL (7-20); Calcium 9.2 mg/dL (8.6-10.8); Carbon Dioxide 26 mEq/L (19-29); Chloride 109 mEq/L (98-109); Glucose 104 mg/dL (70-99); Osmolality,Calculated 292 (280-300); Potassium 3.4 mEq/L (3.5-4.5); Sodium 141 mEq/L (136-145); eGFR For African Americans > 60 (> 60); eGFR For Non-African Americans > 60 (> 60)
[2017-02-08] MEDS: Acetaminophen 325 MG TABLET PO PRN ×2 (06:53→13:45)
[2017-02-08 07:47] VITALS: BP 135/68
[2017-02-08] MEDS: Cholecalciferol (D-3) 1,000 UNIT TABLET PO SCH (08:13)
--- NOTE | 2017-02-08 08:20 | Physician Discharge Referral ---
ExtendedCare Referral Info Transfer To: [facility] Provider in Charge after Transfer: PCP Institutional Level of Care: Skilled - Diagnosis (1) Closed intertrochanteric fracture of right femur Priority: Primary Status: Acute (2) CAD (coronary artery disease) Priority: Secondary Status: Chronic (3) DVT prophylaxis Priority: Primary Status: Acute Prognosis: Good Aware of Diagnosis: Patient Aware of Prognosis: Patient - Transfer Medications Prescriptions: HYDROcodone/Acet 5/325 mg [[place] 5-325 mg] 1 tab PO Q4HR PRN #20 tab PRN Reason: Moderate Pain (4-6) Acetaminophen [Tylenol] 650 mg PO Q6HR PRN #21 tab PRN Reason: Mild Pain (1-3) Cholecalciferol (D-3) [Vitamin D] 1,000 unit PO DAILY #30 tab Docusate [Colace] 100 mg PO BID PRN #10 PRN Reason: Constipation Home Medications: Multivitamin [Multi-Day Vitamins] 1 tab PO DAILY 10/17/16 [History] Albuterol Sulfate [Proair Hfa] 2 puff IH Q4-6H PRN 02/05/17 [History] Alendronate Sodium [Fosamax] 70 mg PO QWEEK 02/05/17 [History] Isosorbide MONOnitrate (24 HR) [Imdur] 30 mg PO DAILY 02/05/17 [History] [place]-3/Dha/Epa/Fish Oil [Fish Oil 500 mg Softgel] 500 mg PO DAILY 02/05/17 [ History] Acetaminophen [Tylenol] 650 mg PO Q6HR PRN #21 tab 02/08/17 [Rx] Cholecalciferol (D-3) [Vitamin D] 1,000 unit PO DAILY #30 tab 02/08/17 [Rx] Docusate [Colace] 100 mg PO BID PRN #10 02/08/17 [Rx] HYDROcodone/Acet 5/325 mg [[place] 5-325 mg] 1 tab PO Q4HR PRN #20 tab 02/08/17 [ Rx] Allergies/Adverse Reactions: Allergies Sulfa (Sulfonamide Antibiotics) Allergy (Verified 02/05/17 11:25) Swelling of Lip/Tongue/Throat - Respiratory Orders Smoking Cessation: Smoking cessation has been advised. For more information, call the [place] Tobacco Quit Line at 1-806-WKLC-NOW. - Advance Directives Code Status: Full Code - Mobility Orders Ambulate - Rehabiliation Orders Rehab Potential: Good Rehab Orders: ROM Exercises, Evaluation for Physical Therapy, Evaluation for Occupational Therapy - Diet Orders Regular CERTIFICATION: I certify that the transfer of the above named patient to an Extended Care Facility is necessary for the continuing treatment of the diagnosis listed. The above information is true and accurate reflection of patient's current condition. Confidential - Redisclosure prohibited without a patient's written consent.
--- NOTE | 2017-02-08 08:27 | Discharge Summary ---
<iGna Nguyen - Last Filed: 02/08/17 12:39> Date of Encounter: 02/08/17 Time of Encounter: 08:20 - Discharge Diagnosis (1) Closed intertrochanteric fracture of right femur Priority: Primary Status: Acute Qualifiers: Encounter type: initial encounter Fracture alignment: displaced Qualified Code(s): S72.141A - Displaced intertrochanteric fracture of right femur, initial encounter for closed fracture (2) CAD (coronary artery disease) Priority: Secondary Status: Chronic Qualifiers: Coronary Disease-Associated Artery/Lesion type: minto artery [place] vs. transplanted heart: minto heart Associated angina: without angina Qualified Code(s): I25.10 - Atherosclerotic heart disease of minto coronary artery without angina pectoris (3) DVT prophylaxis Priority: Primary Status: Acute - Discharge Medications Prescriptions: HYDROcodone/Acet 5/325 mg [[place] 5-325 mg] 1 tab PO Q4HR PRN #20 tab PRN Reason: Moderate Pain (4-6) Acetaminophen [Tylenol] 650 mg PO Q6HR PRN #21 tab PRN Reason: Mild Pain (1-3) Cholecalciferol (D-3) [Vitamin D] 1,000 unit PO DAILY #30 tab Docusate [Colace] 100 mg PO BID PRN #10 PRN Reason: Constipation Home Medications: Multivitamin [Multi-Day Vitamins] 1 tab PO DAILY 10/17/16 [History] Albuterol Sulfate [Proair Hfa] 2 puff IH Q4-6H PRN 02/05/17 [History] Alendronate Sodium [Fosamax] 70 mg PO QWEEK 02/05/17 [History] Isosorbide MONOnitrate (24 HR) [Imdur] 30 mg PO DAILY 02/05/17 [History] [place]-3/Dha/Epa/Fish Oil [Fish Oil 500 mg Softgel] 500 mg PO DAILY 02/05/17 [ History] Acetaminophen [Tylenol] 650 mg PO Q6HR PRN #21 tab 02/08/17 [Rx] Cholecalciferol (D-3) [Vitamin D] 1,000 unit PO DAILY #30 tab 02/08/17 [Rx] Docusate [Colace] 100 mg PO BID PRN #10 02/08/17 [Rx] HYDROcodone/Acet 5/325 mg [[place] 5-325 mg] 1 tab PO Q4HR PRN #20 tab 02/08/17 [ Rx] Allergies/Adverse Reactions: Allergies Sulfa (Sulfonamide Antibiotics) Allergy (Verified 02/05/17 11:25) Swelling of Lip/Tongue/Throat Date of admission: 02/05/17 16:59 Primary care physician: Heidi Chamberlain Consults: 02/06/17 23:03 Consult to Occupational Therapy [CONS] Routine Comment: Evaluate, develop and implement POC Reason for Consult: post hip surgery Consult to Orthopedic Navigator [CONS] [CONS] Routine Consult to Physical Therapy [CONS] Routine Comment: Evaluate, develop and implement POC Reason for Consult: post hip surgery Consult to Parquetry Floor Layer [CONS] Routine Reason for SW Consult: post -op hip fracture RT Post Op Consult [CONS] Routine Discharging clinician: Mann Pitts Anticipated date of discharge: 02/08/17 - Patient Status Disposition: Transfer Inpatient Rehab Fac Condition: Fair Functional capacity at discharge: uses cane/walker Overall status at discharge: patient is progressing back to baseline - Discharge Instructions Follow Up With: Irene Zepeda PAC [Physician Timber Appraiser] - 02/21/17 10:30 am Heidi Cox MD [Primary Care Provider] - Additional Instructions: Discharge Instructions: Total Hip Replacement Please call [facility] ([phone]), your Primary Care Physician, or report to the Emergency Room if you have any of the following symptoms: Nausea, vomiting, fever greater that 101.5, swelling, chest pain, shortness of breath, increased pain/redness/drainage/odor for your incision site, numbness/ tingling, or any other concerning symptoms. ACTIVITY:Weight-bearing as tolerated for 8 weeks with hip dislocation precautions that physical therapy taught you. You may progress as tolerated under the guidance of your physical therapist. You do not need to sleep with a pillow between your legs. You can also seep on the operative side or on your stomach. MEDICATIONS: Upon discharge resume your home medications. Take all the medications as prescribed. Take a stool softener if taking narcotic pain medications. Stool softeners are only effective if you drink enough fluids. Drink 6-8 glass of water or fluids a day, unless this is not allowed for another health problem. Despite using stool softeners, if you haven't had a bowel movement in 3 days, please switch to a gentle laxative. Gentle laxatives are sold over the counter. You should have a bowel movement within 24 hours, if not call the office. You will be discharged from the hospital with a prescription for pain medication. You are encouraged to decrease the use of narcotic pain medication as tolerated. Should you require a refill, please call the office. [facility] prescribes narcotic pain medication for only 4-6 weeks after surgery. If you require pain medication beyond this time period, you may be referred to your Primary Care Physician or to the Pain Clinic for further evaluation. Plan ahead for refills on pain medication as many narcotics either need to be picked up at the office or mailed. It is best to call 48-72 hours in advance of needing a prescription refill so you don't run out of medication. To help control the post-operative pain, you may take NSAIDs (Aleve,Advil, Motrin, ibuprofen, naprosyn) or Tylenol as prescribed on the bottle in addition to the pain medication. ANTICOAGULATION (blood thinners): Continue your Aspirin, Lovenox or Coumadin as prescribed to help prevent a blood clot in the leg or in the lungs. As long as your incision remains dry and you tolerate the NSAIDs (Aleve, Advil, Motrin, Ibuprofen, Naprosyn), it is OK to use the NSAIDS while you are taking your anticoagulation medication. Should your incision start to drain, stop the NSAID and contact our office. Common symptoms of blood clot in the legs include: localized pain, swelling, calf tenderness, redness or discoloration of the skin. Blood clot in the lung symptoms include: shortness of breath, rapid pulse, sweating, and chest pain that worsens with deep breathing, coughing up blood, lightheadedness, feelings of anxiety. If you experience any of these symptoms notify your physician immediately, go to the emergency room, or if having trouble breathing, call 911. WOUND CARE: Leave the dressing on for 7 to 10days. You may change the dressing if it is saturated greater than 50%. Do not get the dressing wet at anytime. Wash your hands with antibacterial soap, rinse and dry prior to any wound care. If you have sadie the visiting nurse or rehab facility can remove the stapes 10-14 days after surgery and place steri-strips across the wound. Leave the steri-strips in place until they fall off on their own. You may let water from the shower run on top of the steri-strips. If you do not have a visiting nurse or rehab facility, you will need to return to the office at 10-14 days for the sadie to be removed. If you have itching or redness around the dressing call the office. FOLLOW-UP: Please follow up with your surgeon in the orthopedic clinic in 6 weeks from the day of surgery. If you have sadie that need to be removed, you will need to come back to the office in 10-14 days from the day of surgery. - Diet and Activity Activity: as per physical therapy Diet: regular diet Interval History: Patient states pain is doing much better today, she has been walking with PT and has been up to the restroom several times already this morning. Hospital course: Ms. Winter is a 76 year old female who presented to the ED after a mechanical fall onto her right hip while playing beach volleyball at [employer]. She had immediate severe sharp pain in the right, was unable to bear weight or move. XR revealed intertrochanteric fracture of the right femur. Dr. Burt performed a right hip intermedullary nailing on 02/06/17 without any complications. The patient noted significant improvement POD1 and was up in the chair, tolerated PT well and has been ambulating to and from the restroom with a walker. Her pain is well controlled with tylenol and occasional norco. She will be discharge to [facility] for inpatient rehab with excellent rehab potential and prognosis. - Time Spent with Patient Total time spent providing and/or coordinating discharge services: - Constitutional Vitals: Temp Pulse Resp BP Pulse Ox 98.5 F 73 16 135/68 98 02/08/17 07:47 02/08/17 07:47 02/08/17 07:47 02/08/17 07:47 02/08/17 00:28 General appearance: Present: cooperative, A&O X 3, pleasant, no acute distress, answers questions appropriately - Head Head exam: Present: atraumatic, normocephalic - Neck Neck exam general surgery: Present: supple, trachea midline. Absent: lymphadenopathy - Respiratory Respiratory exam: Present: CTAB. Absent: accessory muscle use, rales, rhonchi, wheezes - Cardiovascular Cardiovascular exam: Present: RRR, +S1, +S2. Absent: diastolic murmur, gallop, rubs, systolic murmur - GI/Abdominal GI/Abdominal exam: Present: normal bowel sounds, soft, no peritoneal signs. Absent: distended, tenderness - Extremities Exam Extremities exam: Present: normal capillary refill, warm, radial pulses palpable and symetrical. Absent: calf tenderness, cyanotic, pedal edema Additional comments: Dressing in place right lateral hip, limb is neurovascularly intact without evidence of erythema, eccymosis or swelling. - Neurological Exam Neurological exam: Present: alert, CN II-XII intact, oriented X3, no focal deficits. Absent: pronater drift, facial droop, speech deficit - Psychiatric Psychiatric exam: Present: normal affect, normal mood - Skin Skin exam: Present: dry, intact, warm. Absent: diaphoretic, erythema - VTE Documentation of Mechanical Device: Intermittent pneumatic compression device <Mann Pitts - Last Filed: 02/08/17 19:56> Date of Encounter: 02/08/17 Date of admission: 02/05/17 16:59 Primary care physician: [facility] Consults: 02/06/17 23:03 Consult to Occupational Therapy [CONS] Routine Comment: Evaluate, develop and implement POC Reason for Consult: post hip surgery Consult to Orthopedic Navigator [CONS] [CONS] Routine Consult to Physical Therapy [CONS] Routine Comment: Evaluate, develop and implement POC Reason for Consult: post hip surgery Consult to Parquetry Floor Layer [CONS] Routine Reason for SW Consult: post -op hip fracture RT Post Op Consult [CONS] Routine Hospital course: Ms. Winter is a 76 year old female - Time Spent with Patient Total time spent providing and/or coordinating discharge services: - Constitutional Vitals: Temp Pulse Resp BP Pulse Ox 98.5 F 73 16 135/68 98 02/08/17 07:47 02/08/17 07:47 02/08/17 07:47 02/08/17 07:47 02/08/17 00:28 - Attending Attestation I examined this patient and my medical decision-making was reviewed with the Resident Physician. I agree with the documented findings, disposition and treatment plan as described except to the extent set forth below.
== END 2017-02-08 14:03 | DRG 482 ==
LOC: 3NENU 11:22 → EMEROO 11:22 → 3NENU 15:09
PROVIDERS: ADMIT Internal Medicine; ATTEND Internal Medicine

== ENCOUNTER 2017-05-17 18:25 | Observation (INO) ==
[2017-05-17 18:48] LABS: Basophils % 0.5 %; Eosinophils # 0.1 K/mcL (0.0-0.6); Eosinophils % 2.1 %; Hematocrit 37.9 % (35.3-44.9); Hemoglobin 12.7 g/dL (11.5-15.4); Lymphocytes # 2.3 K/mcL (0.6-4.6); Lymphocytes % 38.8 %; Mean Corpuscular HGB Conc 33.5 g/dL (31.6-35.5); Mean Corpuscular Hemoglobin 30.7 pg (28.0-33.3); Mean Corpuscular Volume 91.5 fL (83.0-100.0); Mean Platelet Volume 9.9 fL (9.4-12.4); Monocytes # 0.7 K/mcL (0.0-1.3); Monocytes % 12.2 %; Neutrophils # 2.7 K/mcL (1.6-8.9); Platelet Count 296 K/mcL (140-400); Red Blood Count 4.14 M/mcL (3.82-4.97); Red Cell Distribution Width 12.8 % (11.5-14.5); Segmented Neutrophils % 46.4 %
--- NOTE | 2017-05-17 18:48 | Emergency Department Note ---
Disposition Clinical Impression: Cerebrovascular accident Disposition: Admitted As Inpatient Condition: Fair Referrals: Heidi Cox MD [Primary Care Provider] - Forms: ED Satisfaction Letter Time of Disposition: 19:12 Neuro HPI - General Chief Complaint: ED Neuro Symptoms/Deficit Stated Complaint: Neuro symptoms Last know well at 1530 Time Seen by Provider: 05/17/17 18:41 Source: patient, other Limitations: no limitations Nursing Notes Reviewed: Yes Vital Signs Reviewed: Yes - History of Present Illness HPI Narrative: Patient presents with her and the story is that at 3:00 today she developed confusion in the sense that it was difficult for her to remember words , onset of headache however she is unable to tell me at this time the exact onset whether it was sudden or gradual, she does state is severe, and she said she had a funny feeling. No specific localized numbness or weakness of the extremities, slurred speech or facial droop. No trauma to the head. Does have some rhinorrhea but no coughing or sneezing. No fever or blurred vision. No blood in the urine or stool. No numbness or pain in extremities. No skin rash or bruising of the skin. Social history: No smoking or alcohol - Related Data Home Medications: Home Medications Medication Instructions Recorded Confirmed Multivitamin [Multi-Day Vitamins] 1 tab PO DAILY 10/17/16 05/17/17 Alendronate Sodium [Fosamax] 70 mg PO QWEEK 02/05/17 05/17/17 [place]-3/Dha/Epa/Fish Oil [Fish Oil 1 cap PO DAILY 02/05/17 05/17/17 500 mg Softgel] Amoxicillin [Amoxicillin] 875 mg PO BID 05/17/17 05/17/17 Aspirin Enteric Coated [Aspirin EC] 81 mg PO DAILY 05/17/17 05/17/17 Allergies/Adverse Reactions: Allergies Allergy/AdvReac Type Severity Reaction Status Date / Time Sulfa (Sulfonamide Allergy Swelling Verified 02/05/17 11:25 Antibiotics) of Lip/Tongue/Throat Review of Systems: As Per HPI Past Medical History - Past Medical History Medical history: Reports: no medical history Surgical history: Reports: other (tubal ligation) Psychiatric history: Reports: no psych history WARRANTY 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 EYES: PERRL, EOMI, no scleral icterus NOSE: The nose is normal in appearance without rhinorrhea NECK: Supple without rigidity, no EMILE RESP: Normal chest excursion with respiration; breath sounds clear and equal bilaterally; no wheezes, rhonchi, or rales CARD: Regular rhythm, without murmurs, rub or gallop ABD: Non-distended; non-tender, soft, without rigidity, rebound or guarding SKIN: Normal for age and race; warm and dry; no apparent lesions, no rash NEUROLOGICAL: Patient is alert and oriented times three. Cranial nerves III- XII are intact. The stroke scale is 0 - General Limitations: no limitations Course Vital Signs Temperature 97.5 F L 05/17/17 18:27 Pulse Rate 85 05/17/17 18:27 Respiratory Rate 20 05/17/17 18:27 Blood Pressure 198/69 05/17/17 18:27 O2 Sat by Pulse Oximetry 98 05/17/17 18:27 Temperature 97.5 F L 05/17/17 18:27 Pulse Rate 73 05/17/17 19:46 Respiratory Rate 18 05/17/17 19:46 Blood Pressure 162/77 05/17/17 19:46 O2 Sat by Pulse Oximetry 99 05/17/17 19:46 Oxygen Delivery Oxygen Delivery Room Air Neuro Symptoms/Deficit - MDM Narrative Medical decision making narrative: Patient's symptoms are concerning for stroke or even possibly more likely for intracranial hemorrhage. Her mother did from a intracranial hemorrhage. The patient does not use anticoagulation. She did have a massage this afternoon however does not have any specific neck pain. She was seen immediately upon placement into her bed and I did call a stroke alert within several minutes of seeing the patient and CT scan of the brain is pending at the patient is in the radiology department at this time. 1848 I did go back and reassess the patient and confirmed the history. Headache started over a time span of about 15 minutes and is left sided and she was not able to describe the character. She said she was having some difficulty with writing however was able to write adequately. States it is difficult for her to finish sentences however I do not detect slurred speech however it does take her some time to come up with answers to questions however her answers are appropriate and correct. She does know the month and does know her age. I did review the CT scan and do not see a gross abnormality we are waiting for radiology confirmation. We will further discuss with the stroke neurologist through tele radiography at [facility] [address] I did speak with Dr. Corrina Samuel who did examine the patient through the computer monitor and she does not feel that the patient is a thrombolytic candidate and I agree. I did discuss this with the patient and her - the patient will be admitted to the hospital with a likely CVA but this will need further workup including consideration of neurology consultation and MRI scan as an inpatient. I do review the labs. We will assess for the hospitalist. I spoke with rad and head CT neg. Critical care time: 30 minutes 1910 We did discuss the case with the hospitalist Dr. Hampton who accepted the patient for admission. Patient has been reevaluated and her symptoms have not worsened. 1942 I did review the EKG showing normal sinus rhythm with rate of 80 and with some nonspecific ST changes. No evidence of significant arrhythmia 2021 - Medical Records Medical records reviewed: Yes I reviewed the patient's medical records. - Lab Data Lab results reviewed: Yes I reviewed the patient's lab results. Result diagrams: 05/17/17 18:44 05/17/17 18:44 Lab Results 05/17/17 05/17/17 05/17/17 Range/Units 18:29 18:44 18:44 WBC 5.8 (4.3-11.1) K/mcL RBC 4.14 (3.82-4.97) M/mcL Hgb 12.7 (11.5-15.4) g/dL Hct 37.9 (35.3-44.9) % MCV 91.5 (83.0-100.0) fL MCH 30.7 (28.0-33.3) pg MCHC 33.5 (31.6-35.5) g/dL RDW 12.8 (11.5-14.5) % Plt Count 296 (140-400) K/mcL MPV 9.9 (9.4-12.4) fL Immature Gran % 0.0 (0-4) % Seg Neutrophils % 46.4 % Lymphocytes % 38.8 % Monocytes % 12.2 % Eosinophils % 2.1 % Basophils % 0.5 % Neutrophils # 2.7 (1.6-8.9) K/mcL Lymphocytes # 2.3 (0.6-4.6) K/mcL Monocytes # 0.7 (0.0-1.3) K/mcL Eosinophils # 0.1 (0.0-0.6) K/mcL Basophils # 0.0 (0.0-0.2) K/mcL PT 11.0 (9.4-12.1) Seconds INR 1.0 APTT 30.5 (26.0-36.0) Seconds Sodium (136-145) mEq/L Potassium (3.5-4.5) mEq/L Chloride (98-109) mEq/L Carbon Dioxide (19-29) mEq/L BUN (7-20) mg/dL Creatinine (0.57-1.11) mg/dL Est GFR ( Amer) (> 60) Est GFR (Non-Af Amer) (> 60) BUN/Creatinine Ratio (6-26) Glucose (70-99) mg/dL POC Glucose 97 H (58-89) Calculated Osmolality (280-300) Calcium (8.6-10.8) mg/dL Troponin I (0-0.03) ng/mL Urine Color (Yellow) Urine Clarity (Clear) Urine pH (5.0-8.0) pH Units Ur Specific [place] (1.010-1.025) Urine Protein (Neg-Trace) mg/dL Urine Glucose (UA) (Normal) mg/dL Urine Ketones (Negative) mg/dL Urine Blood (Negative) Urine Nitrite (Negative) Urine Bilirubin (Negative) Urine Urobilinogen (Normal) mg/dL Ur Leukocyte Esterase (Negative) Urine Microscopic RBC (0-3) per hpf Urine Microscopic WBC (0-3) per hpf Ur Squamous Epith Cells (None-Few) per lpf Urine Bacteria (None-Few) per hpf Hyaline Casts (None-Few) per lpf 05/17/17 05/17/17 05/17/17 Range/Units 18:44 18:44 19:38 WBC (4.3-11.1) K/mcL RBC (3.82-4.97) M/mcL Hgb (11.5-15.4) g/dL Hct (35.3-44.9) % MCV (83.0-100.0) fL MCH (28.0-33.3) pg MCHC (31.6-35.5) g/dL RDW (11.5-14.5) % Plt Count (140-400) K/mcL MPV (9.4-12.4) fL Immature Gran % (0-4) % Seg Neutrophils % % Lymphocytes % % Monocytes % % Eosinophils % % Basophils % % Neutrophils # (1.6-8.9) K/mcL Lymphocytes # (0.6-4.6) K/mcL Monocytes # (0.0-1.3) K/mcL Eosinophils # (0.0-0.6) K/mcL Basophils # (0.0-0.2) K/mcL PT (9.4-12.1) Seconds INR APTT (26.0-36.0) Seconds Sodium 138 (136-145) mEq/L Potassium 3.7 (3.5-4.5) mEq/L Chloride 106 (98-109) mEq/L Carbon Dioxide 24 (19-29) mEq/L BUN 10 (7-20) mg/dL Creatinine 0.74 (0.57-1.11) mg/dL Est GFR ( Amer) > 60 (> 60) Est GFR (Non-Af Amer) > 60 (> 60) BUN/Creatinine Ratio 14 (6-26) Glucose 95 (70-99) mg/dL POC Glucose (58-89) Calculated Osmolality 285 (280-300) Calcium 9.9 (8.6-10.8) mg/dL Troponin I 0.00 (0-0.03) ng/mL Urine Color Yellow (Yellow) Urine Clarity Clear (Clear) Urine pH 6.0 (5.0-8.0) pH Units Ur Specific [place] 1.015 (1.010-1.025) Urine Protein Negative (Neg-Trace) mg/dL Urine Glucose (UA) Normal (Normal) mg/dL Urine Ketones Negative (Negative) mg/dL Urine Blood Small H (Negative) Urine Nitrite Negative (Negative) Urine Bilirubin Negative (Negative) Urine Urobilinogen Normal (Normal) mg/dL Ur Leukocyte Esterase Negative (Negative) Urine Microscopic RBC 3-5 H (0-3) per hpf Urine Microscopic WBC 0-3 (0-3) per hpf Ur Squamous Epith Cells Moderate H (None-Few) per lpf Urine Bacteria None Seen (None-Few) per hpf Hyaline Casts None Seen (None-Few) per lpf - Radiology Data Radiology results reviewed: Yes I reviewed the patient's radiology results. NIH Stroke Scale - Level of Consciousness LOC: Alert - LOC Questions LOC Questions: Answers both correctly - LOC Commands LOC Commands: Performs both correctly - Best Gaze Best Gaze: Normal - Visual Visual: No visual loss - Facial Palsy Facial Palsy: Normal - Motor Arms Motor Arm-Left: No drift for 10 seconds Motor Arm-Right: No drift for 10 seconds - Motor Legs Motor Leg-Left: No drift for 5 seconds Motor Leg-Right: No drift for 5 seconds - Limb Ataxia Limb Ataxia: Normal, No Ataxia - Sensory Sensory: Normal - Best Language Best Language: No aphasia - Dysarthria Dysarthria: Normal - Extinction and Inattention Extinction and Inattention: Normal - NIHSS Total Score NIHSS Total Score: 0 TPA Checklist - LKW: 3-4.5 hrs Add. Warnings/Precautions Patient/family understanding: The patient/family members have been counseled and understood the risk, benefit , and alternatives of treatment. Critical Care Time Critical Care Time: Yes Total Critical Care Time: 30 Attestation: I did spend 30 minutes of critical care time with a patient with an acute stroke occluding evaluation for possible thrombolytics, interpretation of CT exam of the brain, laboratory evaluation management and discussed the patient and her
[2017-05-17 18:56] LABS: Activated Partial Thrombo Time 30.5 Seconds (26.0-36.0)
[2017-05-17 19:00] LABS: BUN/Creatinine Ratio 14 (6-26); Blood Urea Nitrogen 10 mg/dL (7-20); Calcium 9.9 mg/dL (8.6-10.8); Carbon Dioxide 24 mEq/L (19-29); Chloride 106 mEq/L (98-109); Glucose 95 mg/dL (70-99); Osmolality,Calculated 285 (280-300); Potassium 3.7 mEq/L (3.5-4.5); Sodium 138 mEq/L (136-145); eGFR For African Americans > 60 (> 60); eGFR For Non-African Americans > 60 (> 60)
[2017-05-17] MEDS ORDERED: Aspirin 325 MG TABLET PO ONE (19:06)
[2017-05-17] MEDS ORDERED: Ondansetron 4 MG/2 ML VIAL IVP ONE (19:06)
[2017-05-17] MEDS ORDERED: *HR* Morphine 2 MG/ML SYRINGE IVP ONE (19:06)
[2017-05-17 19:43] LABS: Bilirubin,Urine Negative (Negative); Blood,Urine Small (Negative); Clarity,Urine Clear (Clear); Color,Urine Yellow (Yellow); Glucose,Urine (UA) Normal (Normal); Ketones,Urine Negative (Negative); Leukocyte Esterase,Urine Negative (Negative); Nitrite,Urine Negative (Negative); Protein,Urine Negative (Neg-Trace); Specific Gravity,Urine 1.015 (1.010-1.025); Urobilinogen,Urine Normal (Normal)
[2017-05-17 19:46] LABS: Bacteria,Urine None Seen per hpf (None-Few); Hyaline Casts,Urine None Seen per lpf (None-Few); Squamous Epithelial Cell,Urine Moderate per lpf (None-Few); WBC,Urine 0-3 per hpf (0-3)
[2017-05-17] MEDS ORDERED: *HR* Morphine 2 MG/ML SYRINGE IVP PRN (22:06)
[2017-05-17] MEDS ORDERED: Ondansetron 4 MG/2 ML VIAL IVP PRN (22:06)
--- NOTE | 2017-05-17 22:14 | Internal Med History&Physical ---
Date of Encounter: 05/17/17 Time of Encounter: 22:14 Assessment and Plan (1) Hypertensive urgency Current visit: Yes Status: Acute hold blood pressure medications allow for permissive hypertension. (2) CVA (cerebral vascular accident) Current visit: Yes Status: Acute Patient still has expressive aphasia. Will admit patient for acute stroke. NIH stroke scale Q4 hours. Will check echocardiogram, carotid Doppler, PT OT social welfare research worker to see the patient. Appreciate neurology input. Allow permissive hypertension. Unfortunately patient has pins during recent hip surgery and therefore most likely cannot have an MRI. Will investigate the possibility of having an MRI in the morning Qualifiers: Qualified Code(s): I63.9 - Cerebral infarction, unspecified (3) Headache Current visit: Yes Status: Acute Patient has left frontal headache. No vision problems. Which ESR. No neck pain or stiffness or focal neurological deficits to raise concern for subarachnoid hemorrhage. CT scan of the head shows no evidence of bleed. Qualifiers: Qualified Code(s): R51 - Headache Internal Medicine - H&P: HPI Chief complaint: headache and expressive aphasia History of present illness: Ms. Winter is a 77 year old female resistance to the emergency room today with a main component of headache and expressive aphasia. At approximately 3:30 PM patient started experiencing severe headache in the left frontal area associated with expressive aphasia where she was unable to find words in complete sentences. The symptoms has improved over the next few hours to my interview with her. She denies any focal upper or lower extremity weakness, tingling or numbness in any extremity, Facial assymetry or speech sluriness. She denies any vision problems or loss of vision. No prior similar symptoms. No known prior history of headaches. Patient denies any neck pain or stiffness. No fever or chills Past Med Surg Social Fam HX - Past Medical History Medical history: no medical history Psychiatric history: no psych history - Past Surgical History Surgical History: other - Social History Smoking Status: Never smoker Smokeless Tobacco Status: No Alcohol use: rarely Drug use: none - Family History Mother Adopted: No Living Status: Hx Family Neurologic Disorders: Yes (Stroke) Father Living Status: Hx Family Cardiac Disorders: Yes Internal Medicine - H&P: Meds Multivitamin [Multi-Day Vitamins] 1 tab PO DAILY 10/17/16 [History] Alendronate Sodium [Fosamax] 70 mg PO QWEEK 02/05/17 [History] [place]-3/Dha/Epa/Fish Oil [Fish Oil 500 mg Softgel] 1 cap PO DAILY 02/05/17 [ History] Amoxicillin [Amoxicillin] 875 mg PO BID 05/17/17 [History] Aspirin Enteric Coated [Aspirin EC] 81 mg PO DAILY 05/17/17 [History] 3 Allergy/AdvReac Type Severity Reaction Status Date / Time Sulfa (Sulfonamide Allergy Swelling Verified 02/05/17 11:25 Antibiotics) of Lip/Tongue/Throat All Systems PM: A 10-system review of systems was performed and is negative for pertinent findings except as documented above in the HPI. Review of systems: 10 point review of systems is negative except for HPI - Constitutional Vitals: Temp Pulse Resp BP Pulse Ox 98 F 90 16 175/84 98 05/17/17 21:47 05/17/17 21:47 05/17/17 21:47 05/17/17 21:47 05/17/17 21:47 Exam: General: Patient is A&O X3 Cardiac: normal S1, S2, no additional sounds or murmurs Chest: Clear to auscultation bilaterally Abdomen: soft, nontender, non distended, normal BS. Neuro: expressive aphasia, no focal deficit Internal Med - H&P Results - Labs CBC & Chem 7: 05/17/17 18:44 05/17/17 18:44
[2017-05-17 22:43] LABS: C-Reactive Protein 1 mg/L (Less than 5)
[2017-05-18 04:52] LABS: Hematocrit 33.6 % (35.3-44.9); Hemoglobin 11.3 g/dL (11.5-15.4); Immature Granulocytes % 0.3 % (0-4); Lymphocytes % 17.2 %; Mean Corpuscular HGB Conc 33.6 g/dL (31.6-35.5); Mean Corpuscular Hemoglobin 30.5 pg (28.0-33.3); Mean Corpuscular Volume 90.8 fL (83.0-100.0); Mean Platelet Volume 10.6 fL (9.4-12.4); Platelet Count 280 K/mcL (140-400); Red Cell Distribution Width 12.6 % (11.5-14.5); Segmented Neutrophils % 75.2 %
[2017-05-18 04:53] LABS: Basophils % 0.3 %; Lymphocytes # 1.3 K/mcL (0.6-4.6); Monocytes # 0.5 K/mcL (0.0-1.3); Neutrophils # 5.7 K/mcL (1.6-8.9)
[2017-05-18 05:15] LABS: BUN/Creatinine Ratio 14 (6-26); Blood Urea Nitrogen 10 mg/dL (7-20); Calcium 9.1 mg/dL (8.6-10.8); Carbon Dioxide 22 mEq/L (19-29); Chloride 105 mEq/L (98-109); Glucose 116 mg/dL (70-99); Osmolality,Calculated 282 (280-300); Potassium 3.7 mEq/L (3.5-4.5); Sodium 136 mEq/L (136-145); eGFR For African Americans > 60 (> 60); eGFR For Non-African Americans > 60 (> 60)
[2017-05-18] MEDS: Aspirin Enteric Coated 81 MG Tablet PO SCH (09:27)
[2017-05-18] MEDS: Famotidine 20 MG/2 ML VIAL IVP SCH (09:27)
[2017-05-18] MEDS: Acetaminophen 325 MG TABLET PO PRN (09:49)
--- NOTE | 2017-05-18 15:04 | Neurology - Consult Note ---
Date of Encounter: 05/18/17 Time of Encounter: 15:01 Assessment and Plan (1) Severe headache Current Visit: Yes Status: Acute new onset of acute severe headache associated with slurred speech and elevated BP. Likely related to hypertensive urgency. MRI of brain negative for new stroke. Pain is strictly left side in midline fashion. Cause unknown Will recommend CTA of brain and neck to assess possibility of cerebral aneurysm. Await echocardiography and carotid artery duplex. Continue medical and supportive. Continue Aspirni 81mg daily History of Present Illness Chief complaint: headache and slurred speech HPI: Ms. Winter is a 77 year old female with PMH significant for HTN, CAD history of hip fracture who developed speech difficulty and severe headache. Patient interviewed in the presence of her . Patient's mentioned and when looking back retrospectively the patient had some mild speech difficulty two days ago, then gradually build up in few days and then she developed this real bad throbbing headache to the left frontal and temporal region and involves the entire left face. The headaches gradually build up to a significant degree. she was noticed to have some slurred speech as well. In the ER her blood pressure was elevated. She has no history of HTN though. has migraine in the past but nothing like this severe and previous migraines were usually frontal in location. Past Med Surg Social Fam HX - Past Medical History Medical history: no medical history Psychiatric history: no psych history - Past Surgical History Surgical History: other - Social History Smoking Status: Never smoker Smokeless Tobacco Status: No Alcohol use: rarely Drug use: none - Family History Mother Adopted: No Living Status: Hx Family Neurologic Disorders: Yes (Stroke) Father Living Status: Hx Family Cardiac Disorders: Yes Medications and Allergies Multivitamin [Multi-Day Vitamins] 1 tab PO DAILY 10/17/16 [History] Alendronate Sodium [Fosamax] 70 mg PO QWEEK 02/05/17 [History] [place]-3/Dha/Epa/Fish Oil [Fish Oil 500 mg Softgel] 1 cap PO DAILY 02/05/17 [ History] Amoxicillin [Amoxicillin] 875 mg PO BID 05/17/17 [History] Aspirin Enteric Coated [Aspirin EC] 81 mg PO DAILY 05/17/17 [History] 3 Allergy/AdvReac Type Severity Reaction Status Date / Time Sulfa (Sulfonamide Allergy Swelling Verified 02/05/17 11:25 Antibiotics) of Lip/Tongue/Throat All Systems: A 10-system review of systems was performed and is negative for pertinent findings except as documented above in the HPI. Physical Examination - Vital Signs Vital Signs: Initial Vital Signs Temp Pulse Resp BP Pulse Ox 97.5 F L 85 20 198/69 98 05/17/17 18:27 05/17/17 18:27 05/17/17 18:27 05/17/17 18:27 05/17/17 18:27 - Constitutional General appearance: comfortable - Neurologic Detailed motor examination: full strength in all major muscle groups Motor examination - right side: 5/5: deltoids, biceps, triceps, wrist flexion, wrist extension, child protective services social worker, hip flexors, tibialis Anterior, quadriceps, toe extension (EHL), plantarflexion Motor examination - left side: 5/5: deltoids, biceps, triceps, wrist flexion, wrist extension, hip flexors, child protective services social worker, quadriceps, tibialis Anterior, toe extension (EHL), plantarflexion Detailed sensory examination: intact Reflex and gait examination: intact Reflexes: Biceps: 1+, Triceps: 1+, Brachioradialis: 1+, Patella: 1+, Achilles: 1 + Mental Status Examination: awake, alert, oriented to person, oriented to place, oriented to time, follows commands appropriately, answers questions appropriately, no agnosia, no aphasia, no aproxia Cranial nerve examination: PERRL, EOMI, visual gauthier intact, corneal reflexes brisk symmetrically, sensory to face intact, mastication intact, no facial asymmetry is present, no dysarthria, hearing is intact symmetrically, soft palate elevates bilaterally upon phonation, gag reflex intact, flexes SCM and trapezius muscles symmetrically with full power, tongue protrudes midline, no atrophy or facial fasiculations present Cerebellar examination: no dysmetria, performs finger to nose and heel to campuzano symmetrically without ataxia, no gait ataxia, no truncal ataxia, no difficulty with rapid alternating movements Results - Laboratory Findings CBC and BMP: 05/18/17 03:30 05/18/17 03:30 Abnormal lab findings: Abnormal lab results RBC 3.70 M/mcL (3.82-4.97) L 05/18/17 03:30 Hgb 11.3 g/dL (11.5-15.4) L 05/18/17 03:30 Hct 33.6 % (35.3-44.9) L 05/18/17 03:30 ESR 19 mm/hr (0-15) H 05/17/17 18:47 Glucose 116 mg/dL (70-99) H 05/18/17 03:30 POC Glucose 97 (58-89) H 05/17/17 18:29 Urine Blood Small (Negative) H 05/17/17 19:38 Urine Microscopic RBC 3-5 per hpf (0-3) H 05/17/17 19:38 Ur Squamous Epith Cells Moderate per lpf (None-Few) H 05/17/17 19:38 Consult Discharge Plan - Plan Referrals: Heidi Cox MD [Primary Care Provider] -
--- NOTE | 2017-05-18 18:40 | Electrocardiograph Report ---
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
--- NOTE | 2017-05-18 19:00 | Internal Med Progress Note ---
Date of Encounter: 05/18/17 Time of Encounter: 08:55 - Assessment and plan (1) Hypertensive urgency Current Visit: Yes Status: Acute Assessment and plan: Patient states that she went to get a massage at about noon yesterday. She came back home around 1:00 that she was unable to put the steps together to write her next appointment for a massage on the calendar. She said that she felt as if she was confused, then she began having a left frontal and temporal headache that she rated 10/10 and she was unable to control it at home. She reports that when her came home at approximately 5 PM her speech was garbled. She was aware that she was unable to put the proper words together make them come out correctly. She was brought to the emergency room for evaluation. No prior history of CVA or TIA. Patient was hypertensive on arrival to the emergency department. MRI of brain negative for new stroke. Headache is strictly left side in midline fashion and has become increasingly better today. In the afternoon, she reports that headache was gone. Was relieved with Tylenol. Cardiogram shows LVEF 65% with mild LV DD, no evidence of PFO, small pericardial effusion and no tip not. No significant valvular dysfunction. CTA of the head shows no acute intracranial abnormality, unremarkable. Preliminary carotid report shows normal carotids bilaterally. Blood pressure has been well controlled in the hospital. She is not on any hypertensives at home, will add hydrochlorothiazide 12.5 mg by mouth daily. (2) Headache Current Visit: Yes Status: Acute Assessment and plan: Plan as above. Qualifiers: Headache type: unspecified Headache chronicity pattern: acute headache Intractability: not intractable Qualified Code(s): R51 - Headache (3) DVT prophylaxis Current Visit: No Status: Acute Assessment and plan: SCDs ordered. - Time Spent With Patient less than 15 minutes - Subjective Interval history: Patient was seen and assessed at bedside at 8:55 AM. She reports improving left frontal temporal headache, rated 3/10. States it is significantly improved from yesterday. Requested Tylenol for pain. All other symptoms have resolved and patient states that she has returned to normal. She denies nausea , vomiting, photo or phonophobia, dizziness, syncope or presyncope, abdominal pain, chest pain or shortness of breath. - Constitutional Vitals: Temp Pulse Resp BP Pulse Ox 98.2 F 67 16 109/54 97 05/18/17 15:46 05/18/17 15:46 05/18/17 15:46 05/18/17 15:46 05/18/17 15:46 General appearance: Present: cooperative, A&O X 3, pleasant, answers questions appropriately - Head Head exam: Present: atraumatic, normal inspection, normocephalic - Eye Eye exam: Present: EOMI, normal appearance, PERRL, conjuntiva pink, sclera anicteric. Absent: nystagmus - Neck Neck exam general surgery: Present: normal inspection, supple, trachea midline. Absent: lymphadenopathy, tenderness - Respiratory Respiratory exam: Present: CTAB. Absent: accessory muscle use, chest wall tenderness, decreased breath sounds, rales, respiratory distress, rhonchi, wheezes - Cardiovascular Cardiovascular exam: Present: RRR, +S1, +S2. Absent: diastolic murmur, distant heart sounds, gallop, rubs, systolic murmur - GI/Abdominal GI/Abdominal exam: Present: normal bowel sounds, soft. Absent: distended, hepatomegaly, tenderness - Extremities Exam Extremities exam: Present: warm, radial pulses palpable and symmetrical. Absent : calf tenderness, cyanotic, normal capillary refill, normal inspection, pedal edema, tenderness - Neurological Exam Neurological exam: Present: alert, CN II-XII intact, normal gait, oriented X3, no focal deficits, strengths equal and symetr throughout. Absent: altered, motor sensory deficit, pronater drift, facial droop, speech deficit - Expanded Neurological Exam Neurological exam expanded: Absent: expressive aphasia, receptive aphasia, total aphasia Patient oriented to: Present: person, place, time Speech: Absent: garbled, slurred Cranial Nerves: EOM's intact PM: Normal, nystagmus PM: Normal Cerebellar function: finger to nose: Normal Neuro motor strength exam: LUE: 3, RUE: 3, LLE: 3, RLE: 3 Coma Scale Eye Opening: Spontaneous Coma Scale Motor Response: Obeys Commands Coma Scale Verbal Response: Oriented Coma Scale Total: 15 - Skin Skin exam: Present: dry, intact, normal color, warm. Absent: rash Internal Medicine: Result - Labs CBC & Chem 7: 05/18/17 03:30 05/18/17 03:30 Labs: Short CBC 05/18/17 Range/Units 03:30 WBC 7.6 (4.3-11.1) K/mcL Hgb 11.3 L (11.5-15.4) g/dL Hct 33.6 L (35.3-44.9) % Plt Count 280 (140-400) K/mcL Neutrophils # 5.7 (1.6-8.9) K/mcL BMP 05/18/17 03:30 Sodium 136 Potassium 3.7 Chloride 105 Carbon Dioxide 22 BUN 10 Creatinine 0.71 Glucose 116 H Calcium 9.1 - ABG Interpretation ABG results: PT/INR, D-dimer PT 11.0 Seconds (9.4-12.1) 05/17/17 18:44 - Impressions Impressions Echocardiogram 05/18/17 08:00 Impressions: LVEF 65%. Normal LV chamber size, wall thickness and function. Mild left ventricular diastolic dysfunction. Normal right ventricular structure and function. No evidence of PFO with agitated saline contrast. No evidence of pulmonary hypertension. There is a small pericardial effusion present. No tamponade. No significant valvular dysfunction. Left Ventricular Wall Motion: Rest Echo Findings All wall segments showed normal motion. Findings: Study Quality * Technically adequate exam. ECG Findings * Normal sinus rhythm. Left Ventricle * LVEF 65%. * Normal LV chamber size, wall thickness and function. * Mild left ventricular diastolic dysfunction. Right Ventricle * Normal right ventricular structure and function. Left Atrium * Mildly dilated left atrium. Right Atrium * Normal right atrial size. Interatrial Septum * No evidence of PFO with agitated saline contrast. Aortic Valve * Aortic valve not well visualized. * Grossly trileaflet and sclerotic aortic valve. * No aortic regurgitation. * No aortic stenosis. Mitral Valve * Mild mitral annular calcification. * Trace mitral regurgitation. * No mitral stenosis. Tricuspid Valve * Normal tricuspid valve structure and function. * Trace tricuspid regurgitation. * No evidence of pulmonary hypertension. Pulmonic Valve * Normal pulmonic valve structure and function. * Trace pulmonic regurgitation. Aorta * Normally sized aortic root. Pericardium * There is a small pericardial effusion present. No tamponade. IVC * Normal IVC dimensions and inspiratory collapse. Pulmonary Artery * Normal visualized portions of the main pulmonary artery. Brain MRI 05/18/17 10:01 IMPRESSION: Mild small vessel ischemic changes bilaterally without acute infarct. D/ / Vaughn Braxton / Vaughn Braxton Interpreting Provider: Vaughn Braxton Angiography CT 05/18/17 16:00 IMPRESSION: 1. No acute intracranial abnormality. 2. Unremarkable CTA of the head. D/ / 05/18/2017 17:02:43 Ja Willis MD / bcarter Interpreting Provider: Ja Willis MD Consult Discharge Plan - Plan Referrals: Heidi Cox MD [Primary Care Provider] -
[2017-05-19] MEDS: Acetaminophen 325 MG TABLET PO PRN (07:51)
[2017-05-19] MEDS: Aspirin Enteric Coated 81 MG Tablet PO SCH (07:51)
[2017-05-19] MEDS: Famotidine 20 MG/2 ML VIAL IVP SCH (07:52)
[2017-05-19] MEDS ORDERED: hydroCHLOROthiazide 25 MG TABLET PO SCH (09:00)
[2017-05-19 10:51] VITALS: BP 132/64
--- NOTE | 2017-05-19 11:54 | Discharge Summary ---
Date of Encounter: 05/19/17 Time of Encounter: 11:00 - Discharge Diagnosis (1) Hypertensive urgency Priority: Primary Status: Acute Comments: Patient states that she went to get a massage at about noon on day of admission. She came back home around 1:00 and she was unable to put the steps together to write her next appointment for a massage on the calendar. She said that she felt as if she was confused, then she began having a left frontal and temporal headache that she rated 10/10 and she was unable to control it at home. She reports that when her came home at approximately 5 PM her speech was garbled. She was aware that she was unable to put the proper words together make them come out correctly. She was brought to the emergency room for evaluation. No prior history of CVA or TIA. Patient was hypertensive on arrival to the emergency department. MRI of brain negative for new stroke. Headache is strictly left side in midline fashion and has become increasingly better today. In the afternoon, she reports that headache was gone. Was relieved with Tylenol. Cardiogram shows LVEF 65% with mild LV DD, no evidence of PFO, small pericardial effusion and no tip not. No significant valvular dysfunction. CTA of the head shows no acute intracranial abnormality, unremarkable. Preliminary carotid report shows normal carotids bilaterally. Blood pressure has been well controlled in the hospital. She is not on any hypertensives at home, will add hydrochlorothiazide 12.5 mg by mouth daily. (2) Headache Priority: Secondary Status: Acute Comments: Plan as above. Pt reports prior history of migraines prior to menopause. She denies need for pain medication, states that she will take Tylenol at home. Head CT 05/17/17 18:39 IMPRESSION: No acute intracranial abnormality. Findings were discussed with Haley Martinez MD at 7:02 pm on 05/17/2017. D/ / Bandar Boyd MD / Bandar Boyd MD Interpreting Provider: Bandar Boyd MD Brain MRI 05/18/17 10:01 IMPRESSION: Mild small vessel ischemic changes bilaterally without acute infarct. D/ / Vaughn Braxton / Vaughn Braxton Interpreting Provider: Vaughn Braxton Angiography CT 05/18/17 16:00 IMPRESSION: 1. No acute intracranial abnormality. 2. Unremarkable CTA of the head. D/ / 05/18/2017 17:02:43 Ja Willis MD / bcarter Interpreting Provider: Ja Wlilis MD Qualifiers: Headache type: unspecified Headache chronicity pattern: acute headache Intractability: not intractable Qualified Code(s): R51 - Headache (3) DVT prophylaxis Priority: Secondary Status: Acute Comments: SCDs ordered. - Discharge Medications Prescriptions: Acetaminophen [Tylenol] 650 mg PO Q6HR PRN #60 tablet PRN Reason: Mild Pain hydroCHLOROthiazide [Hydrochlorothiazide] 12.5 mg PO DAILY #30 tablet Home Medications: Multivitamin [Multi-Day Vitamins] 1 tab PO DAILY 10/17/16 [History] Alendronate Sodium [Fosamax] 70 mg PO QWEEK 02/05/17 [History] [place]-3/Dha/Epa/Fish Oil [Fish Oil 500 mg Softgel] 1 cap PO DAILY 02/05/17 [ History] Aspirin Enteric Coated [Aspirin EC] 81 mg PO DAILY 05/17/17 [History] Acetaminophen [Tylenol] 650 mg PO Q6HR PRN #60 tablet 05/19/17 [Rx] hydroCHLOROthiazide [Hydrochlorothiazide] 12.5 mg PO DAILY #30 tablet 05/19/17 [ Rx] Allergies/Adverse Reactions: 3 Allergy/AdvReac Type Severity Reaction Status Date / Time Sulfa (Sulfonamide Allergy Swelling Verified 02/05/17 11:25 Antibiotics) of Lip/Tongue/Throat Procedures/tests Complete & Pending: Procedures Performed prior 72 hours Category Date Time Status CTA Head wo/w contrast [CT angio head wo/w con] [CT] Cat Scan 05/18/17 16:00 Draft Routine MR head/brain wo con [MR] Stat MRI 05/18/17 10:01 Completed ECG 12 lead ECG [ECG] Routine Y 05/17/17 18:39 Completed EV carotid duplex imaging BI Routine Y 05/18/17 08:00 Completed EV echocardiogram Routine Y 05/18/17 08:00 Completed Date of admission: 05/17/17 20:29 Primary care physician: Heidi Chamberlain Consults: 05/17/17 22:02 Consult to Neurology [CONS] Routine Consulting Provider: Neurology [facility] Reason for Consult: expressive aphasia Call Completed: Yes Consult to Occupational Therapy [CONS] Routine Comment: Evaluate, develop and implement POC Reason for Consult: tia Consult to Physical Therapy [CONS] Routine Comment: Evaluate, develop and implement POC Reason for Consult: tia Consult to Speech Therapy [CONS] Routine Comment: Evaluate, develop and implement POC Reason for Consult: TIA Call Completed: No Discharging clinician: Nadia Dumont Anticipated date of discharge: 05/19/17 - Patient Status Disposition: Home, Self-Care Condition: Good Functional capacity at discharge: independent ambulation Overall status at discharge: patient is back to baseline - Discharge Instructions Follow Up With: Heidi Cox MD [Primary Care Provider] - Additional Instructions: Please follow up with your PCP in the next 7-10 days for a follow up visit. Return to the ER as needed for any other problems or concerns. Take 1 baby aspirin daily and start the hydrochlorothiazide at home tomorrow morning. Return to your normal activities and diet as tolerated. - Diet and Activity Activity: increase activity as tolerated Diet: advance to your usual diet Interval History: Please see assessment and plan for hospital course. Pt will be going home with her and will be supervised, needs met. Hospital course: Ms. Winter is a 77 year old female - Time Spent with Patient Total time spent providing and/or coordinating discharge services: Less than 30 minutes - Constitutional Vitals: Temp Pulse Resp BP Pulse Ox 97.8 F 69 16 132/64 97 05/19/17 10:49 05/19/17 10:49 05/19/17 10:49 05/19/17 10:49 05/19/17 10:49 General appearance: Present: cooperative, A&O X 3, pleasant, no acute distress, answers questions appropriately - Head Head exam: Present: atraumatic, normal inspection, normocephalic - Eye Eye exam: Present: normal appearance, conjuntiva pink, sclera anicteric - Neck Neck exam general surgery: Present: normal inspection, supple, trachea midline. Absent: lymphadenopathy, tenderness - Respiratory Respiratory exam: Present: CTAB. Absent: accessory muscle use, chest wall tenderness, decreased breath sounds, rales, respiratory distress, rhonchi, wheezes - Cardiovascular Cardiovascular exam: Present: RRR, +S1, +S2. Absent: diastolic murmur, gallop, rubs, systolic murmur - GI/Abdominal GI/Abdominal exam: Present: normal bowel sounds, soft, no peritoneal signs. Absent: distended, hepatomegaly, tenderness - Extremities Exam Extremities exam: Present: normal capillary refill, normal inspection, tenderness, warm, radial pulses palpable and symmetrical. Absent: calf tenderness, cyanotic, pedal edema - Neurological Exam Neurological exam: Present: alert, oriented X3, no focal deficits, strengths equal and symetr throughout. Absent: pronater drift, facial droop, speech deficit - Skin Skin exam: Present: dry, intact, normal color, warm. Absent: rash - VTE Documentation of Mechanical Device: Intermittent pneumatic compression device
== END 2017-05-19 12:31 | disposition home or self-care (01) ==
LOC: 3BNU 18:25 → EMEROO 18:25 → 3BNU 21:13
PROVIDERS: ADMIT Registered Nurse; ATTEND Registered Nurse